=== PATIENT | female | born 1950 | race Caucasian/White ===

== ENCOUNTER 2022-01-14 13:14 | Outpatient (CLI) | payer MEDICARE, SELFPAY ==
[2022-01-14 16:52] LABS: TSH With Reflex to FT4* 0.312 uIU/mL (0.270-4.200)
--- NOTE | 2022-01-15 09:42 | ONC.NURNOTE ---
Patient referred by Dr. Laguerre for oncology follow up. Patient last seen in 05/[address] Magdaleno - per referral patient would like to see an alternative provider. LMOM for patient to call and schedule.
== END 2022-01-14 13:15 | disposition home or self-care (01) ==
LOC: NFLDREF 13:14
PROVIDERS: PCP Internal Medicine; Visit Provider Internal Medicine
DX: E03.9 Hypothyroidism, unspecified (principal)
CPT/HCPCS: 84443

== ENCOUNTER 2022-04-15 13:43 | Outpatient (CLI) | payer MEDICARE, SELFPAY ==
--- NOTE | 2022-04-15 14:00 | CRLHL7_ITS ---
For Patients: As a result of the Century Cures Act, medical imaging exams and procedure reports are released immediately into your electronic medical record. You may view this report before your referring provider. If you have questions, please contact your health care provider. BILATERAL SCREENING MAMMOGRAM WITH COMPUTER-AIDED DETECTION AND TOMOSYNTHESIS TECHNIQUE: CC and MLO views were obtained. These mammographic images have been obtained using full-field digital technique. These mammographic images were interpreted with the benefit of computer-aided detection. Breast Tomosynthesis was used in this interpretation. COMPARISON FILM: 11/15/20; 05/15/10. FINDINGS: The breasts are heterogeneously dense, which may obscure small masses IMPRESSION: There is no radiographic evidence for malignancy. ASSESSMENT: BI-RADS Category 2: Benign RECOMMENDATION: Routine screening mammogram in 1 year. A lay language report of this examination will be provided to the patient. Oscar Navarrete M.D. Diagnostic/Nuclear Medicine Radiologist [email or web address] Transcribed: 2:15 pm DW/Dictated by: Oscar Navarrete MD @ 04/16/2022 8:31:00 AM (Electronically Signed)
== END 2022-04-15 13:44 | disposition home or self-care (01) ==
LOC: MAMMO 13:44
PROVIDERS: PCP Internal Medicine; Visit Provider Internal Medicine
DX: Z12.31 Encounter for screening mammogram for malignant neoplasm of breast (principal); R92.2 Inconclusive mammogram
CPT/HCPCS: 77063; 77067

== ENCOUNTER 2022-04-21 09:44 | Outpatient (RCR) | payer MEDICARE, SELFPAY ==
--- NOTE | 2022-04-29 11:06 | ONC.NURNOTE ---
Follow up call to patient to see if she had made a decision re: endocrine therapy. Patient states I keep getting in my own way in regards to making a decision. Patient shares that she deals with a lot of chronic pain and she is so concerned that the endocrine therapy will interfere or worsen her existing problems. We again reviewed the side effects of endocrine therapy and I reiterated that she may have none, all or some of these side effects. The only way we will know is by trying. Patient appreciates the call and the information. She requests more time to make this decision. She will call us with her decision or with any questions or concerns.
== END 2022-10-18 23:59 | disposition home or self-care (01) ==
LOC: CCIC 09:44
PROVIDERS: PCP Internal Medicine; Visit Provider Nurse Practitioner Family
DX: C50.911 Malignant neoplasm of unspecified site of right female breast (principal); Z17.0 Estrogen receptor positive status [ER+]; Z85.3 Personal history of malignant neoplasm of breast; M85.80 Other specified disorders of bone density and structure, unspecified site
CPT/HCPCS: 99212; 99214

== ENCOUNTER 2023-02-05 13:23 | Outpatient (CLI) | payer MEDICARE, SELFPAY | END 2023-02-05 13:24 | disposition home or self-care (01) | PROVIDERS: PCP Internal Medicine; Visit Provider Internal Medicine | DX: Z00.00 Encounter for general adult medical examination without abnormal findings (principal); E03.9 Hypothyroidism, unspecified; Z13.6 Encounter for screening for cardiovascular disorders; Z13.1 Encounter for screening for diabetes mellitus | CPT/HCPCS: 80061; 82306; 82947; 84443 ==

== ENCOUNTER 2024-02-22 11:10 | Outpatient (CLI) | payer MEDICARE, SELFPAY | END 2024-02-22 11:11 | disposition home or self-care (01) | PROVIDERS: PCP Internal Medicine; Visit Provider Internal Medicine | DX: E03.9 Hypothyroidism, unspecified (principal); M85.80 Other specified disorders of bone density and structure, unspecified site | CPT/HCPCS: 82306; 84443 ==

== ENCOUNTER 2024-05-12 15:24 | Outpatient (CLI) | payer MEDICARE, SELFPAY | END 2024-05-12 15:25 | disposition home or self-care (01) | LOC: KYNREF 15:25 | PROVIDERS: PCP Internal Medicine; Visit Provider Nurse Practitioner Family | DX: R05.8 Other specified cough (principal) | CPT/HCPCS: 85025 ==

== ENCOUNTER 2024-06-03 13:09 | Outpatient (CLI) | payer MEDICARE, SELFPAY | END 2024-06-03 13:10 | disposition home or self-care (01) | LOC: KYNREF 13:10 | PROVIDERS: PCP Internal Medicine; Visit Provider Nurse Practitioner Family | DX: R53.83 Other fatigue (principal) | CPT/HCPCS: 85025 ==

== ENCOUNTER 2024-06-06 14:45 | Outpatient (CLI) | payer MEDICARE, SELFPAY | END 2024-06-06 14:46 | disposition home or self-care (01) | LOC: NFLDREF 06-08 01:29 | PROVIDERS: PCP Internal Medicine; Referring Provider Internal Medicine | DX: M54.9 Dorsalgia, unspecified (principal) | CPT/HCPCS: 87086 ==

== ENCOUNTER 2024-06-24 12:39 | Outpatient (CLI) | payer MEDICARE, SELFPAY ==
--- NOTE | 2024-06-24 13:00 | CRLHL7_ITS ---
For Patients: As a result of the Century Cures Act, medical imaging exams and procedure reports are released immediately into your electronic medical record. You may view this report before your referring provider. If you have questions, please contact your health care provider. INDICATION: Left-sided rib pain. History of breast cancer. COMPARISON: Radiograph 06/06/2024. TECHNIQUE: Sagittal T1, T2, and STIR sequences. Axial T2/gradient sequences. Post gadolinium to weighted sequences. Dotarem 20 cc IV. FINDINGS: Mild kyphosis of the midthoracic spine. Normal facet alignment. Widespread osseous metastases throughout the thoracic and visualized upper lumbar spine. Additional metastatic lesions also noted within the cervical spine on the [employer] films. Metastatic involvement of the posterior elements. Pathologic fracture of the T10 vertebral body with anterior wedging approximately 50 60 percent loss of height. Bulging of the posterior margin of the vertebral body measures approximate 4 mm in AP dimension. Post gadolinium imaging demonstrates abnormal enhancement within the dorsal epidural space at the level of T9 and T10 which may represent tumor extension into the epidural space. Normal cord signal. No intradural mass or lesion. Mild thoracic spondylosis. T9-10: Disk degeneration. Bulging of the posterior margin of the T10 vertebral body. Mild narrowing of spinal canal. Abnormal enhancement in the bilateral neural foramina likely represents extension of tumor. T10-11: Disc degeneration. Mild narrowing of spinal canal. Enhancing tumor extends into the bilateral neural foramina and likely encases the exiting T10 nerve roots. No spinal canal neural foraminal narrowing at remaining levels. IMPRESSION: 1. Widespread osseous metastases throughout the thoracic and visualized upper lumbar spine. 2. Pathologic fracture of T10. Anterior wedging and 50-60 percent loss of height. Bulging of the posterior margin of vertebral body results in moderate to severe narrowing of spinal canal 3. Post gadolinium imaging demonstrates no abnormal enhancement within the dorsal epidural space at T9 and T10 which may represent tumor extension. 4. Normal cord signal 5. At T9-10 and T10-11, mild narrowing of spinal canal. Enhancing tissue within the bilateral neural foramina likely represents tumor extension 6. No spinal canal or neural foraminal narrowing at the remaining levels Dictated by Martin Minor MD @ 06/27/2024 9:11:34 AM (Electronically Signed)
--- NOTE | 2024-06-24 13:45 | CRLHL7_ITS ---
For Patients: As a result of the Century Cures Act, medical imaging exams and procedure reports are released immediately into your electronic medical record. You may view this report before your referring provider. If you have questions, please contact your health care provider. INDICATION: Low back pain. History of breast cancer. COMPARISON: 06/06/2024. TECHNIQUE: Sagittal T1, T2, and STIR sequences. Axial T1 and T2 weighted sequences. FINDINGS: Normal vertebral body alignment. Widespread osseous metastases throughout the lumbar spine, sacrum, and visualized iliac bones. There is mild, approximately 20 percent loss of height of the L1 vertebral body which may be secondary to pathologic fracture. No retropulsion of fracture fragments. Abnormal osseous expansion of the left transverse process of L5 and the visualized left sacral ala secondary to tumor. There is tumor extension into the left ventral and dorsal neural foramina of the sacrum and into the left dorsal lateral epidural space at the level L5 through the sacrum. Abnormal enhancement within the ventral epidural space to the level of L5 and sacrum also consistent with tumor extension. Normal conus terminates at L1. T12-L1 L1-2 L2-3: No spinal canal or neural foraminal narrowing. L3-4: No narrowing of the spinal canal. No neural foraminal narrowing. L4-5: Disc degeneration posterior disc bulge. Mild narrowing of spinal canal. No neural foraminal narrowing. Mild facet arthropathy. L5-S1: Disc degeneration loss disc height. Diffuse disc bulge eccentric to the left. No narrowing of spinal canal. Tumor extending into the epidural space on the left as described above. Mild narrowing of bilateral foramina. There is enhancing tissue extending into the bilateral foramina, left greater right, consistent with tumor extension. Degenerative changes of the SI joints. Mildly prominent retroperitoneal lymph nodes. IMPRESSION: 1. Widespread osseous metastases. 2. Mild approximately 20 percent loss of height of L1 which may be secondary to pathologic fracture. 3. Abnormal osseous expansion of the left transverse process of L5 and the visualized left sacral ala secondary to tumor. Tumor extension into the epidural space from the level of L5 through the sacrum. 4. At L4-5, mild narrowing of the spinal canal 5. At L5-S1, mild narrowing of the bilateral neural foramina. Tumor extends into the bilateral neural foramina, left greater than right. Dictated by Martin Minor MD @ 06/27/2024 9:20:03 AM (Electronically Signed)
== END 2024-06-24 12:40 | disposition home or self-care (01) ==
LOC: MRI 12:39
PROVIDERS: PCP Internal Medicine; Visit Provider Family Medicine
DX: M54.50 Low back pain, unspecified (principal); C79.51 Secondary malignant neoplasm of bone; M51.26 Other intervertebral disc displacement, lumbar region; M51.27 Other intervertebral disc displacement, lumbosacral region; R07.81 Pleurodynia; M48.54XA Collapsed vertebra, not elsewhere classified, thoracic region, initial encounter for fracture; M51.24 Other intervertebral disc displacement, thoracic region; Z85.3 Personal history of malignant neoplasm of breast
CPT/HCPCS: 72157; 72158; A9575

== ENCOUNTER 2024-07-04 11:43 | Inpatient (IN) | payer MEDICARE, SELFPAY ==
[2024-07-04] VITALS (9 sets, daily range): BP systolic 114–160; BP diastolic 70–82; PULSE 95–107; RESP 12–18; TEMP 36.7–37.1; O2SAT 89–100; BMI 18.3; BMI 19.2
--- NOTE | 2024-07-04 13:38 | ED_ITS ---
HPI - General Adult General Date Seen: 07/04/24 Chief complaint: Back Injury/Pain Stated complaint: general check- sent by PCP Time Seen by Provider: 07/04/24 13:13 History of Present Illness HPI narrative: History is limited by patient's altered mental status. She is confused and a little bit anxious and tangential. 74-year-old female is sent to the ER today by her primary care provider. She presents to ER today accompanied by her . She has been previously very active up until March when she started having back pain. She has had workup in the clinic and apparently has ?spots? in her spine that her probably metastatic cancer. Her primary care provider, Dr. Matthews in has ordered further workup of brain MRI and PET scan which are scheduled to be done later this week. However her pain has been getting so severe that beginning 3 days ago on Thursday her primary put her on oxycodone. The oxycodone is helping somewhat with her pain but is causing vomiting. She saw Dr. Laguerre in the primary care clinic on 06/28/2024. According to those records she has a history of recurrent breast cancer, most recent recurred in 2020 but did not follow-up with Oncology. It sounds like Dr. Laguerre in prescribed her some opiate pain killers (possibly oxycodone) last week. Patient notes that she had at been having headaches lately. She has been having a lot of brain fog and trouble thinking. In addition to that she is having bifrontal headaches and right parietal headaches. Along with that she had had poor appetite for several weeks. She has had gone at least a week or so since she has last had a bowel movement. She is not really having abdominal pain or bloating. She was started on her pain killer because of her spine fractures and spine Mets and since then has had worsening confusion, nausea, poor oral intake. She does not think she is running a fever. Urination has been normal. She called her primary care office and was told to come here to the ER today. She is apparently scheduled to have an MRI of her brain and a PET scan over the next couple of days. The patient also says that she is not sure if she wants to go through any treatment if she does have recurrent or metastatic cancer. She has a little bit confused just does not know what to do. Per medical record: She saw Dr. Richter in the spine clinic in the end of May, 06/16/2024 for left- sided thoracic discomfort. She had already had x-rays that showed a T10 compression fracture with 40% loss of height. She ultimately had follow-up imaging of MRI of her T-spine and L-spine. 06/24/24 MRI T-spine IMPRESSION: 1. Widespread osseous metastases throughout the thoracic and visualized upper lumbar spine. 2. Pathologic fracture of T10. Anterior wedging and 50-60 percent loss of height. Bulging of the posterior margin of vertebral body results in moderate to severe narrowing of spinal canal 3. Post gadolinium imaging demonstrates no abnormal enhancement within the dorsal epidural space at T9 and T10 which may represent tumor extension. 4. Normal cord signal 5. At T9-10 and T10-11, mild narrowing of spinal canal. Enhancing tissue within the bilateral neural foramina likely represents tumor extension 6. No spinal canal or neural foraminal narrowing at the remaining levels MRI L-spine IMPRESSION: 1. Widespread osseous metastases. 2. Mild approximately 20 percent loss of height of L1 which may be secondary to pathologic fracture. 3. Abnormal osseous expansion of the left transverse process of L5 and the visualized left sacral ala secondary to tumor. Tumor extension into the epidural space from the level of L5 through the sacrum. 4. At L4-5, mild narrowing of the spinal canal 5. At L5-S1, mild narrowing of the bilateral neural foramina. Tumor extends into the bilateral neural foramina, left greater than right. Related Data Home Medications ?Medication ?Instructions ?Recorded ?Confirmed Lots of melaluca vitamins 1 tab PO 04/21/22 06/28/24 ibuprofen 200 mg tablet 200 mg PO Q6H PRN 04/21/22 07/04/24 omega 3-fyg-mri-fish oil 60 mg-90 1 cap PO QDAY 12/01/23 07/04/24 mg-500 mg capsule (Fish Oil) thiamine HCl (vitamin B1) 50 mg 50 mg PO QDAY 02/25/24 07/04/24 tablet mecobalamin (vitamin B12) 1 tab PO DAILY 06/28/24 07/04/24 Previous Rx's ?Medication ?Instructions ?Recorded levothyroxine 75 mcg tablet 75 mcg PO .COMPLEX #45 tabs 02/25/24 (Synthroid) levothyroxine 88 mcg tablet 88 mcg PO .COMPLEX #45 tabs 02/25/24 (Synthroid) oxycodone 5 mg tablet 5 - 10 mg (1 - 2 x 5 mg) PO Q4-8H 06/28/24 PRN pain #60 tabs Allergies Allergy/AdvReac Type Severity Reaction Status Date / Time No Known Drug Allergies Allergy Verified 07/04/24 15:22 [facility] Surgical History History of tonsillectomy ?Z90.89 - Acquired absence of other organs (ICD-10) History of partial thyroidectomy ?E89.0 - Postprocedural hypothyroidism (ICD-10) Social History Smoking Status: Former smoker What tobacco products do you use: cigarettes Smoking quit date/years: >15 years ago Do you use any of these nicotine containing products: None Second hand tobacco smoke exposure: No How often do you have a drink containing alcohol: never AUDIT-C Alcohol total score: 0 Non-prescribed substance use: denies use service: No Exam Narrative: Exam Narrative: Constitutional: Appears well-developed but very slender, almost cachectic. Awake. Wearing sunglasses because of photophobia when I enter into the room. I turned the lights on she is able to take her sunglasses off. She is anxious and jumps rapidly from concerned concern. Her is very attentive and supportive at her bedside. HENT: Head: Atraumatic. Nose: Nose normal. Mouth/Throat: Oral mucosa is clear but dry. Mucous membranes are not desiccated or cracked.. no trismus. Pharynx normal. Eyes: Conjunctivae normal. EOM normal. Pupils equal, round, and reactive to light. No scleral icterus. Neck: Normal range of motion. Neck supple. No tracheal deviation present. Cardiovascular: Normal rate, regular rhythm. No gallop. No friction rub. No murmur heard. Symmetric radial artery pulses Pulmonary/Chest: Effort normal. No stridor. No respiratory distress. No wheezes. No rales. No rhonchi . No tenderness. Abdominal: Soft. Bowel sounds normal. No distension. No mass. No tenderness. No rebound. No guarding. No CVA tenderness. Musculoskeletal: RUE: Normal range of motion. No tenderness. No deformity LUE: Normal range of motion. No tenderness. No deformity RLE: Normal range of motion. No edema. No tenderness. No deformity LLE: Normal range of motion. No edema. No tenderness. No deformity Neurological: Alert and oriented to person, place, and time, but overall is not a good historian. She is not able to really give good cogent history about when her about the constipation started, when her headache started. She talks a lot about a history of migraines which sometimes comes with aura and some with times without.. Normal strength. CN II-VII intact. No sensory deficit. GCS eye subscore is 4. GCS verbal subscore is 5. GCS motor subscore is 6. Normal [facility] . No definite focal deficits in her arms or legs. Skin: Skin is warm and dry. No rash noted. No pallor. Normal capillary refill. Psychiatric: Confused. Somewhat limited. Const: Vital Signs, click to edit/add: Vital Signs - 24 hr 07/04/24 12:15 07/04/24 15:30 07/04/24 15:30 Temperature 98.8 F Pulse Rate [Pulse Oximeter] 101 H Respiratory Rate 16 12 12 Blood Pressure [Ri t Upper Arm] 114/78 Pulse Oximetry 95 89 89 Oxygen Delivery Me thod Room Air Room Air Room Air Oxygen Flow Rate 07/04/24 15:40 07/04/24 16:00 07/04/24 17:00 Temperature Pulse Rate [Pulse Oximeter] 107 H 100 95 Respiratory Rate 18 16 16 Blood Pressure [Ri ght Upper Arm] 130/76 139/72 141/79 H Pulse Oximetry 100 100 100 Oxygen Delivery Me thod Nasal Cannula Room Air Room Air Oxygen Flow Rate 2 Course Vital Signs Vital signs: Initial Vital Signs Temperature 98.8 F 07/04/24 12:15 Temperature Source Temporal Artery Scan 07/04/24 12:15 Pulse Rate 101 H 07/04/24 12:15 Pulse Rhythm Regular 07/04/24 12:15 Pulse Strength 3+ Normal 07/04/24 12:15 Respiratory Rate 16 07/04/24 12:15 Blood Pressure 114/78 07/04/24 12:15 Blood Pressure Mean 90 07/04/24 12:15 Blood Pressure Position Sitting 07/04/24 12:15 Pulse Oximetry 95 07/04/24 12:15 Oxygen Delivery Method Room Air 07/04/24 12:15 Vital Signs Temperature 98.8 F 07/04/24 12:15 Pulse Rate 101 H 07/04/24 12:15 Respiratory Rate 16 07/04/24 12:15 Blood Pressure 114/78 07/04/24 12:15 Pulse Oximetry 95 07/04/24 12:15 Oxygen Delivery Method Room Air 07/04/24 12:15 Temperature 98.8 F 07/04/24 12:15 Pulse Rate 95 07/04/24 17:00 Respiratory Rate 16 07/04/24 17:00 Blood Pressure 141/79 H 07/04/24 17:00 Pulse Oximetry 100 07/04/24 17:00 Oxygen Delivery Method Room Air 07/04/24 17:00 Oxygen Flow Rate 2 07/04/24 15:40 Medications Administered Medications: Generic Name Dose Route Start Last Admin Trade Name Freq PRN Reason Stop Dose Admin Hydromorphone HCl 0.5 mg 07/04/24 14:20 07/04/24 15:07 Hydromorphone 0.5 Mg/0.5 Ml Inj IVP 0.5 mg Q1H PRN Administration Pain Sodium Chloride 1,000 mls @ 1,000 mls/hr 07/04/24 16:30 07/04/24 16:56 0.9 % Sodium Chloride 1000 Ml IV 07/04/24 17:29 Infused .Q1H MARIVEL Infusion Discontinued Medications Generic Name Dose Route Start Last Admin Trade Name Freq PRN Reason Stop Dose Admin Sodium Chloride 1,000 mls @ 1,000 mls/hr 07/04/24 14:30 07/04/24 15:09 0.9 % Sodium Chloride 1000 Ml IV 07/04/24 15:29 1,000 mls/hr .Q1H MARIVEL Administration Ondansetron HCl 4 mg 07/04/24 14:20 07/04/24 15:08 Ondansetron 2 Mg/Ml Inj IVP 07/04/24 14:21 4 mg ONCE ONE Administration Medical Decision Making MDM Narrative Medical decision making narrative: Very pleasant 74-year-old female accompanied to the ER today by her . They were sent in by their primary care provider today it sounds like because she is just having uncontrolled back pain with a known recent diagnosis of multiple spinal metastatic lesions and pathologic fractures. She also has generalized weakness, nausea, and is generally rapidly declining at home. 1. Back pain. She had MRI of her thoracic and lumbar spine a couple weeks ago which confirmed a multiple-level metastatic disease and pathologic fractures. She has no new focal neurologic deficits to suggest spinal cord injury or lumbar radiculopathy so I do not think she needs repeat MR imaging of her spine today. She was endorsing a lot of back pain at home, uncontrolled by prescribed opiate from her PCP. We administered IV Dilaudid here in the ER and she became much more comfortable. She now says that she is mostly just feeling drowsy, not having pain. She did develop hypoxia after Dilaudid, so now is on nasal cannula. At this point she is able to rest comfortably in bed. 2. Neuro. She does have some nonfocal confusion. Unclear if this is anxiety and stress due to her recent discovery of metastatic cancer. She does tell me that she is not sure if she really wants to treat this time or not. She also does not know the true primary. She has no knowledge about prognosis. She was scheduled to have outpatient brain MRI and PET scan in a couple of days, but was too miserable at home and too weak to wait for outpatient workup. She is also a little bit confused, jumping rapidly from thought to thought. Brain CT today is negative for any obvious metastatic disease, but I do think she needs MRI. There is no focal deficits suggest stroke or obvious tumor. No seizure activity. She also has mild hyponatremia which could be contributing to confusion as well as marked hypercalcemia which can also cause altered mental status. At this point I do not think she needs lumbar puncture or other workup to look for encephalitis. In fact I think LP would be relatively contraindicated until MRI is obtained to definitively rule out mass lesions in the brain. 3. Electrolytes. She does have marked hypercalcemia. Ionized calcium is not available immediately, but is pending at the time this dictation. Started on IV hydration to help diurese her hypercalcemia. She will be admitted to the hospitalist service for ongoing calcium management. EKG shows nonspecific T- wave changes but no obvious QRS or dangerous QT changes. She also has mild hyponatremia which could is likely also contributing to weakness and confusion. BUN slightly elevated at 33 which would suggest some poor oral intake at home. IV fluids administered. Blood pressure and lactic acid are stable. No evidence for shock. 4. Id. She is mildly confused but not febrile, white count is normal. No clear evidence for infection. 5. Oncology. CT scan of her chest/abdomen/pelvis does show widely metastatic cancer with an apparent primary in her right upper breast. There are noted lung Mets, liver Mets, and also redemonstration of her previous spine metastases. W ould benefit from oncology consultation while in hospital, if possible. Patient unclear about what her goals of care are. Discussed with our hospitalist, Dr. Cagle who graciously accepts for admission. Please see hospitalist notes for further details about admission status and further workup. Lab Data Labs: Lab Results 07/04/24 Range/Units 15:10 WBC 5.32 (4.50-11.00) K/uL RBC 4.21 (4.00-5.20) m/uL Hgb 12.3 (12.0-16.0) gm/dL Hct 36.1 (33.0-51.0) % MCV 86 (80-100) fL MCH 29 (26-34) pg MCHC 34 (32-36) gm/dL RDW Coeff of Michelle 12.5 (11.5-15.5) % Plt Count 237 (140-440) K/uL Neut % (Auto) 80.4 H (42.0-72.0) % Lymph % (Auto) 11.7 L (20-44) % Noble % (Auto) 5.8 (0.0-11.0) % Eos % (Auto) 0.0 (0.0-7.0) % Baso % (Auto) 0.4 (0.0-3.0) % Neut # (Auto) 4.30 (1.7-7.0) K/uL Lymph # (Auto) 0.60 L (0.90-2.90) K/uL Noble # (Auto) 0.30 (0.00-0.90) K/UL Eos # (Auto) 0.00 (0.00-0.50) K/uL Baso # (Auto) 0.02 (0.00-0.30) K/uL Abs Immat Gran (auto) 0.09 (0.00-0.30) K/uL Imm/Tot Granulo (auto) 1.7 % Sodium 126 L (135-149) mmol/L Potassium 4.4 (3.6-5.1) mmol/L Chloride 83 L (96-114) mmol/L Carbon Dioxide 33 H (20-32) mmol/L Anion Gap 10 (7-15) mEq/L BUN 32 H (7-30) mg/dL Creatinine 1.2 (0.5-1.5) mg/dL Estimated Creat Clear 32.89 Estimated GFR 48 ml/min Glucose 104 (60-115) mg/dL Lactate 1.5 (0.5-1.9) mmol/L Calcium 14.5 H* (8.4-10.6) mg/dL Total Bilirubin 0.9 (0.1-1.5) mg/dL AST 100 H (12-35) U/L ALT 31 (4-35) U/L Alkaline Phosphatase 157 H (40-150) U/L Troponin I 0.03 (0.01-0.04) ng/mL Total Protein 8.3 (6.0-8.3) g/dL Albumin 4.7 (3.3-5.0) g/dL Imaging Data CT scan - head: Attestation: I have reviewed the pertinent imaging results. Radiologist's impression: IMPRESSION: No intracranial abnormality. Fluid in the right sphenoid sinus suggesting sinusitis. No other finding to explain headache. CT Chest/Ab/Pelvis: Attestation: I have reviewed the pertinent imaging results. Radiologist's impression: Impression: 1. 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 2. Small left basilar effusion with demonstration of spiculated pulmonary mass lesions within the lower lobes and anterior left upper lobe commensurate with likely metastatic disease. 3. Primary mass in the upper-outer right breast is appreciated with pathologic right axillary lymph node. 4. Demonstration of a hypodensity within the posterior right liver which may represent a large metastatic focus; however, there is minimal peripheral nodular enhancement. A large hemangioma is not excluded. 5. Otherwise, no acute intra-abdominal abnormalities or evidence of additional metastasis. ECG Data Attestation: I personally reviewed and interpreted this ECG as follows: Interpretation: Or sinus tachycardia Rate: 112 AK: 116 QRS axis: normal axis ST segment/T wave: Nonspecific T-wave flattening. No ST segment elevation or depression. QTc: 406 Discharge Plan Discharge Clinical Impression: Hypercalcemia, Metastatic cancer, Back pain Patient Disposition: Admitted As Observation
--- NOTE | 2024-07-04 14:20 | CRLHL7_ITS ---
For Patients: As a result of the Century Cures Act, medical imaging exams and procedure reports are released immediately into your electronic medical record. You may view this report before your referring provider. If you have questions, please contact your health care provider. Indication: Headache, nausea and vomiting Technique: Volumetric multidetector CT images of the chest, abdomen, and pelvis were obtained after the administration of intravenous contrast. 54 cc Isovue 370 low osmolar intravenous contrast Comparison: MRI thoracic and lumbar spine June 24, 2024 FINDINGS: CHEST The thoracic inlet is unremarkable. The thyroid gland is within normal limits. The thoracic aorta is nonaneurysmal. There is no filling defect to suggest pulmonary embolus. There are enlarged mediastinal, hilar and subcarinal lymph nodes appreciated. Demonstration of likely prior left axillary lymph node dissection as well as a 2.7 x 1.9 centimeter mass in the upper-outer quadrant of the right breast abutting the adjacent pectoral muscle. Additional pathologic lymph nodes within the right axilla appreciated with likely biopsy marker clip. Marked central bronchial thickening. Demonstration of anye-zmbzjsq-wmtd-right basilar trace effusions with adjacent compressive atelectasis. There is mild interlobular septal thickening which may represent a component of pulmonary vascular congestion. Minimal questionable airspace opacity in the anterior right lower lobe is appreciated. There are somewhat spiculated nodules of soft tissue in the left lower lobe measuring 2.0 x 1.8 centimeters along the cardiopericardial surface. Additional spiculated pulmonary mass in the left lung base measuring 1.2 centimeters is appreciated. Heterogeneous marrow changes of the visualized thoracic osseous structures commensurate with likely underlying metastasis are appreciated. Again seen are metastatic changes of the thoracic spine with compression deformity of the T10 level as well as Schmorl`s defect of the superior T12 endplate and evolving likely pathologic fracture of the superior L1 endplate. No significant change from comparison exam. Underlying metastatic changes are better appreciated on comparison MRI. ABDOMEN AND PELVIS The liver demonstrates a large hypodense mass lesion within the posterior right liver with somewhat irregular margins measuring 3.9 x 3.4 centimeters which may represent metastatic change. There is suggestion of minimal peripheral nodular enhancement. An underlying hemangioma is not excluded. The spleen is normal in attenuation and size. The gallbladder is unremarkable without radiopaque calculus. There is no intrahepatic or common ductal dilatation. The stomach and duodenum are grossly unremarkable. The pancreas is normal in enhancement without significant atrophy. The adrenal glands are unremarkable without evidence of adenoma. There is prominence of the bilateral collecting systems without evidence obstructive calculus. There is somewhat abrupt caliber change at the right ureteropelvic junction. The colon demonstrates mild stool with minimal distal colonic diverticulosis. The appendix is unremarkable without significant inflammatory change. The abdominal aorta is nonaneurysmal without significant atherosclerotic disease. The solid pelvic viscera are grossly unremarkable. There is no pathologically enlarged epigastric, mesenteric, retroperitoneal, or pelvic sidewall lymph node. The anterior abdominal wall is grossly intact without significant hernias. There is no free air or free fluid. There is extensive lytic change within the left sacral ala with likely minimal epidural encroachment and encompassing the sacral neural foramina. Extensive lytic and blastic changes of the bilateral iliac bones are appreciated. Redemonstration of metastatic changes of the lumbar spine better appreciated on comparison MRI. No significant change from previous. Impression: 1. 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 2. Small left basilar effusion with demonstration of spiculated pulmonary mass lesions within the lower lobes and anterior left upper lobe commensurate with likely metastatic disease. 3. Primary mass in the upper-outer right breast is appreciated with pathologic right axillary lymph node. 4. Demonstration of a hypodensity within the posterior right liver which may represent a large metastatic focus; however, there is minimal peripheral nodular enhancement. A large hemangioma is not excluded. 5. Otherwise, no acute intra-abdominal abnormalities or evidence of additional metastasis. Please note that all CT scans at this facility use dose modulation, iterative reconstruction, and/or weight-based dosing when appropriate to reduce radiation dose to as low as reasonably achievable. Dictated by Sorin Neely MD @ 07/04/2024 4:10:41 PM (Electronically Signed)
--- NOTE | 2024-07-04 14:20 | CRLHL7_ITS ---
For Patients: As a result of the Century Cures Act, medical imaging exams and procedure reports are released immediately into your electronic medical record. You may view this report before your referring provider. If you have questions, please contact your health care provider. INDICATION: Headache, nausea and vomiting. TECHNIQUE: CT head without contrast. COMPARISON: None. FINDINGS: CSF spaces: Within normal limits for age. Brain parenchyma and extra-axial spaces: The jennings-white differentiation is normal. No sign of mass, hemorrhage, or midline shift. No extra-axial fluid collection. Skull base and calvarium: Fluid level present in the right sphenoid sinus. Remainder of the paranasal sinuses and mastoid air cells are clear. The visualized orbits are grossly unremarkable. No skull fractures. IMPRESSION: No intracranial abnormality. Fluid in the right sphenoid sinus suggesting sinusitis. No other finding to explain headache. Please note that all CT scans at this facility use dose modulation, iterative reconstruction, and/or weight-based dosing when appropriate to reduce radiation dose to as low as reasonably achievable. Dictated by Jaziel Cortes MD @ 07/04/2024 3:53:33 PM (Electronically Signed)
[2024-07-04] MEDS: HYDROmorphone 0.5 mg/0.5 ml inj IVP ×2 (15:07→21:02)
[2024-07-04] MEDS: ONDANSETRON 2 MG/ML inj 4 MG IVP ×2 (15:08→22:35)
[2024-07-04] MEDS: 0.9 % SODIUM CHLORIDE 1000 ml 1,000 ML IV ×2 (15:09→16:50)
[2024-07-04 15:16] LABS: Lactate* 1.5 mmol/L (0.5-1.9)
[2024-07-04 15:24] LABS: Basophils Absolute Auto 0.02 K/uL (0.00-0.30); Basophils Percent Auto 0.4 % (0.0-3.0); Hematocrit 36.1 % (33.0-51.0); Hemoglobin* 12.3 gm/dL (12.0-16.0); Immature Granulocytes Abs Auto 0.09 K/uL (0.00-0.30); Immature Granulocytes Pct Auto 1.7 %; Lymphocytes Percent Auto 11.7 % (20-44); Mean Corpuscular HGB Conc 34 gm/dL (32-36); Mean Corpuscular Hemoglobin 29 pg (26-34); Mean Corpuscular Volume 86 fL (80-100); Monocytes Percent Auto 5.8 % (0.0-11.0); Neutrophils Percent Auto 80.4 % (42.0-72.0); Platelet Count* 237 K/uL (140-440); RDW Coefficient of Variation % 12.5 % (11.5-15.5); Red Blood Count 4.21 m/uL (4.00-5.20); White Blood Count* 5.32 K/uL (4.50-11.00)
[2024-07-04 15:28] LABS: Slide Review Reflex No
[2024-07-04 15:34] LABS: Albumin* 4.7 g/dL (3.3-5.0); Chloride* 83 mmol/L (96-114); Potassium* 4.4 mmol/L (3.6-5.1); Sodium* 126 mmol/L (135-149)
[2024-07-04 15:37] LABS: Alanine Aminotransferase* 31 U/L (4-35); Alkaline Phosphatase* 157 U/L (40-150); Anion Gap 10 mEq/L (7-15); Aspartate Amino Transferase* 100 U/L (12-35); Bilirubin Total* 0.9 mg/dL (0.1-1.5); Blood Urea Nitrogen* 32 mg/dL (7-30); Carbon Dioxide* 33 mmol/L (20-32); Creatinine* 1.2 mg/dL (0.5-1.5); Est. Creatinine Clearance* 32.89; Estimated Glomerular Filt Rate 48 ml/min; Glucose* 104 mg/dL (60-115); Total Protein* 8.3 g/dL (6.0-8.3)
[2024-07-04 15:49] LABS: Troponin I* 0.03 ng/mL (0.01-0.04)
[2024-07-04 15:50] LABS: Calcium* 14.5 mg/dL (8.4-10.6)
[2024-07-04 19:12] LABS: Appearance Urine Clear (Clear); Bilirubin Urine Negative (Negative); Blood Urine 1+ (Negative); Color Urine Yellow (Yellow); Glucose Urine Negative (Negative); Ketones Urine 1+ (Negative); Leukocyte Esterase Urine Negative (Negative); Nitrite Urine Negative (Negative); Protein Urine Negative (Negative); Urobilinogen Urine 0.2 (0.2-1.0); pH Urine 6.5 (5.0-8.5)
--- NOTE | 2024-07-04 19:28 | PC.NURSE ---
Pt admitted @ 1713, accompanied by . AxOx4, with forgetfulness. Pt reported that the picture frame across the room appeared sparkly and when Pt closed eyes, pictures kept popping up of Easter baskets. Pt and gave Pt history. Physical exam complete. Urine sample collected. Pt unable to recall last bm. Pt showed understanding of call light use. Awaiting orders. Report given to [facility] [place]. Pt appears resting in bed with call light in reach.
[2024-07-04 19:32] LABS: Bacteria Urine Few; Squamous Epithelial Cell Urine Few (None-Few); WBC Urine 0-2 (0-5)
--- NOTE | 2024-07-04 19:38 | PM.IMHP1 ---
Assessment and Plan Assessment and plan (1) Back pain: Problem comment: - widely metastatic cancer in the thoracic and lumbar spine along with several pathologic vertebral fractures - patient is agreeable to try higher doses of oxycodone and noted that the Dilaudid that she got in the emergency department seemed to help as well. I have ordered both of these for pain control, Dilaudid should be for breakthrough pain. I think her pain this week is likely exacerbated by hypercalcemia. Status: Acute (2) Hypercalcemia: Problem comment: - severe hypercalcemia of malignancy with a calcium of greater than 14 due to bony metastases. Confusion/AMS is likely secondary to hypercalcemia. I believe her pain is also exacerbated by severe hypercalcemia. - She has gotten 2 L of IV fluid in the emergency department and her calcium has already come down to 12.7. I then continued IVF at a rate of 200cc/hr. She has had 1600cc UO over the past 6 hours now, so I have decreased the rate to 100cc/hr. - I have ordered 1 dose of calcitonin, 4 units/kg. Will redraw calcium with the morning labs, which will be just over 6 hours from the time the calcitonin was given. If calcium is coming down further, calcitonin can be repeated at that dose every 6 hours. If it is not coming down further, the dose could be doubled. - I also gave zoledronic acid 4mg IV. I ordered it to be given over 60 minutes due to low GFR. It is unclear if she has acute or chronic renal failure as I have no previous lab for comparison. Recheck Cr in am. Status: Acute (3) Metastatic cancer to spine: Problem comment: metastatic cancer to spine, metastatic related compression fractures T10 and L1 by MRI 07/15 Status: Acute (4) Pathologic compression fracture of spine: Problem comment: metastatic related compression fractures T10 and L1 by MRI 07/15 Status: Acute (5) Hyponatremia: Problem comment: - mild, likely due to dehydration, may also be exacerbated by lung metastasis. Coming up with hydration, 126 -> 127. Recheck in am. Status: Acute (6) Hypothyroidism: Problem comment: s/p partial thyroidectomy for benign tumor, continue Synthroid Status: Chronic Plan For foot pain, I have ordered L foot films. Total Time Spent Total Time Spent: Time spent: Today I spent 75 minutes seeing the patient, discussing the patient with ER staff, reviewing Expanse and EPIC notes/diagnostics, discussing the care plan with our care team that includes social work, PT/OT, pharmacy, RT, jail and documenting my impressions and plan in the medical record. MEDICAL NECESSITY FOR HOSPITALIZATION Anticipated midnights in the hospital: 2 Admitting diagnosis: Hypercalcemia due to malignancy, uncontrolled back pain due to pathologic fractures and bony mets. Risk of morbidity and mortality: high Acuity is characterized as high and reflected in: The patient has recurrent metastatic breast cancer. This increases the risk during treatment and potentially prolong treatment length. This patient will require hospital services as outlined in the assessment and plan in order to stabilize and be safely discharged to a lower level of care. Because of the risk and acuity as described above, this patient cannot be managed at a lower level of care. LENGTH OF STAY: 2 IP ? Anticipated LOS>2 midnights due to acuity of clinical presentation requiring inpatient level of care Hospitalist- H&P: HPI History of Present Illness Time Seen by Provider: 17:30 Date Seen: 07/04/24 Chief complaint: general check- sent by PCP Narrative: Diana Gipson is a 74 year old female with a history of recurrent breast cancer, recent discovery of bone metastases, hypothyroidism, osteopenia, and chronic neck pain, presents to the emergency department for concerns of worsening back pain. She had breast cancer back in 2010 with a recurrence in 2020. She was seen by Dr. Magdaleno at that time. The patient tells me that she did not trust Dr. Magdaleno's recommendation to start tamoxifen, because Crissy thought that alternative medicine would be better and so she was lost to follow-up. In January she started having low back pain that has been getting worse and starting to spasm. She has tried going to 2 different chiropractors without improvement. It is starting to affect her sleep and activities of daily living. She went to urgent care in mid May and was found to have a compression fracture of the spine. She saw the back clinic and also had an MRI of her thoracic and lumbar spine and was found to widespread bone Mets likely from breast cancer. She met with her primary care provider again prescribed immediate release oxycodone. She is supposed to have a brain MRI and PET scan later this week and follow-up with Oncology. Pain was getting unbearable and she was starting to get confused at home as well. Her is with her today helps to give the history. She tried taking 2.5 mg of oxycodone, but was afraid to increase the dose to 5 or 10 mg time. She did not notice much effect of the medication for pain. Also in the last few months she has noticed left 4th and 5th toe numbness it is starting to become painful in that area as well. She just feels tender and achy all over. Review of Systems Status of ROS: Reports: 10 or more systems reviewed and unremarkable except as noted in History and below [facility] Medical History (Updated 07/04/24 @ 23:46 by Apurva Cagle MD) Tension headache ?G44.209 - Tension-type headache, unspecified, not intractable (ICD-10) Hypothyroidism ?E03.9 - Hypothyroidism, unspecified (ICD-10) Chronic neck pain ?M54.2 - Cervicalgia (ICD-10) ?G89.29 - Other chronic pain (ICD-10) History of breast cancer ?Z85.3 - Personal history of malignant neoplasm of breast (ICD-10) Osteopenia ?M85.80 - Other specified disorders of bone density and structure, unspecified site (ICD-10) Herpes zoster vaccination declined ?Z28.21 - Immunization not carried out because of patient refusal (ICD-10) COVID-19 vaccination declined ?Z28.21 - Immunization not carried out because of patient refusal (ICD-10) Influenza vaccination declined ?Z28.21 - Immunization not carried out because of patient refusal (ICD-10) Mammogram declined ?Z53.20 - Procedure and treatment not carried out because of patient's decision for unspecified reasons (ICD-10) Metastatic cancer to spine ?C79.51 - Secondary malignant neoplasm of bone (ICD-10) Pathologic compression fracture of spine ?M48.50XA - Collapsed vertebra, not elsewhere classified, site unspecified, initial encounter for fracture (ICD-10) Surgical History History of tonsillectomy ?Z90.89 - Acquired absence of other organs (ICD-10) History of partial thyroidectomy ?E89.0 - Postprocedural hypothyroidism (ICD-10) Social History (Updated 07/04/24 @ 19:46 by Apurva Cagle MD) Narrative: Retired from working at a [employer]. ; , Markel, is with her today. Denies alcohol use (lost the taste for it). Remote h/o smoking. DNR/DNI. What is your current living situation?: I presently have a place to live Problems where you live: no known problems Problems where you live details: NA In the past 12 months, utilities in danger of being shut off: no In past 12 months, lack of transportation kept you from medical appts, meetings, work, or getting things needed for daily living: no In the past 12 mos, have been you worried that your food would run out before you had money to buy more?: never true In the past 12 mos, the food you bought just didn't last and you didn't have money to buy more?: never true Highest level of school completed/degree received: high school graduate Smoking Status: Former smoker What tobacco products do you use: cigarettes Smoking quit date/years: >15 years ago Do you use any of these nicotine containing products: None Second hand tobacco smoke exposure: No How often do you have a drink containing alcohol: never AUDIT-C Alcohol total score: 0 Non-prescribed substance use: denies use How often does anyone, including family, friends and others, physically hurt you: never How often does anyone, including family, friends and others, insult or talk down to you: never How often does anyone, including family, friends and others, threaten you with harm: never How often does anyone, including family, friends and others, scream or curse at you: never service: No Meds Home Medications and Allergies Home Medications ?Medication ?Instructions ?Recorded ?Confirmed ?Type Lots of melaluca vitamins 1 tab PO 04/21/22 06/28/24 History ibuprofen 200 mg tablet 200 mg PO Q6H PRN 04/21/22 07/04/24 History omega 6-djm-xaf-fish oil 60 mg-90 1 cap PO QDAY 12/01/23 07/04/24 History mg-500 mg capsule (Fish Oil) mecobalamin (vitamin B12) 1 tab PO DAILY 06/28/24 07/04/24 History Allergies Allergy/AdvReac Type Severity Reaction Status Date / Time No Known Drug Allergies Allergy Verified 07/04/24 15:22 Exam Narrative: Exam Narrative: General: No acute distress. Awake alert oriented x3, but has disorganized thoughts with confusion times. She has difficulty staying focused on the topic and admits to feeling fuzzy and confused. HEENT: Normocephalic atraumatic, pupils equally round and reactive to light and accommodation. Oropharynx clear. Mucous membranes are moist. No cervical lymphadenopathy, thyromegaly or carotid bruits. No JVD. Cardiovascular: Regular rate and rhythm. No murmurs, gallops, or rubs. Chest: No increased work of breathing. Clear to auscultation bilaterally. No crackles or wheezes. Abdomen: Bowel sounds present. Soft, nondistended, nontender. No hepatosplenomegaly or masses. Extremities: No edema, no cyanosis or clubbing. Skin: No jaundice, no pallor, no rashes. Neuro: Sensorium as above. Cranial nerves 2-12 are intact. Extraocular movements are full. No nystagmus. No facial asymmetry. Tongue is midline. Vision is grossly intact. Strength is 5/5 in all 4 extremities. Decreased sensation of the 4th and 5th toes, otherwise light touch sensation is intact in face body and extremities. Const: Vital Signs, click to edit/add: Vital Signs - 24 hr 07/04/24 12:15 07/04/24 15:30 07/04/24 15:30 Temperature 98.8 F Pulse Rate [Pulse Oximeter] 101 H Respiratory Rate 16 12 12 Blood Pressure [Ri ght Arm] Blood Pressure [Ri ght Upper Arm] 114/78 Pulse Oximetry 95 89 89 Oxygen Delivery Me thod Room Air Room Air Room Air Oxygen Flow Rate 07/04/24 15:40 07/04/24 16:00 07/04/24 17:00 Temperature Pulse Rate [Pulse Oximeter] 107 H 100 95 Respiratory Rate 18 16 16 Blood Pressure [Ri ght Arm] Blood Pressure [Ri ght Upper Arm] 130/76 139/72 141/79 H Pulse Oximetry 100 100 100 Oxygen Delivery Me thod Nasal Cannula Room Air Room Air Oxygen Flow Rate 2 07/04/24 18:32 07/04/24 18:32 Temperature 98.5 F Pulse Rate [Pulse Oximeter] 101 H Respiratory Rate 16 Blood Pressure [Ri ght Arm] 160/81 H Blood Pressure [Ri ght Upper Arm] Pulse Oximetry 93 Oxygen Delivery Me thod Room Air Room Air Oxygen Flow Rate Hospitalist - H&P: Result Labs Labs: Short CBC 07/04/24 Range/Units 15:10 WBC 5.32 (4.50-11.00) K/uL Hgb 12.3 (12.0-16.0) gm/dL Hct 36.1 (33.0-51.0) % Plt Count 237 (140-440) K/uL BMP 07/04/24 15:10 Sodium 126 L Potassium 4.4 Chloride 83 L Carbon Dioxide 33 H BUN 32 H Creatinine 1.2 Glucose 104 Calcium 14.5 H* Cardiac Enzymes 07/04/24 Range/Units 15:10 Troponin I 0.03 (0.01-0.04) ng/mL Liver Function 07/04/24 Range/Units 15:10 Total Bilirubin 0.9 (0.1-1.5) mg/dL AST 100 H (12-35) U/L ALT 31 (4-35) U/L Alkaline Phosphatase 157 H (40-150) U/L Albumin 4.7 (3.3-5.0) g/dL Urine 07/04/24 Range/Units 14:22 Urine Color Yellow (Yellow) Urine Appearance Clear (Clear) Urine pH 6.5 (5.0-8.5) Ur Specific [place] 1.010 (1.000-1.030) Urine Protein Negative (Negative) Urine Glucose (UA) Negative (Negative) 07/04/2024 EKG: Sinus tachycardia, 112 beats per minute, marked ST abnormality, possible inferior subendocardial injury. Ordering Physician: Rohith Phelps M.D. Date of Service: 07/04/24 Procedure(s): CT chest abdomen pelv w con Accession Number(s): [id number] cc: Neda Laguerre M.D.; Rohith Phleps M.D.~ For Patients: As a result of the Century Cures Act, medical imaging exams and procedure reports are released immediately into your electronic medical record. You may view this report before your referring provider. If you have questions, please contact your health care provider. Indication: Headache, nausea and vomiting Technique: Volumetric multidetector CT images of the chest, abdomen, and pelvis were obtained after the administration of intravenous contrast. 54 cc Isovue 370 low osmolar intravenous contrast Comparison: MRI thoracic and lumbar spine June 24, 2024 FINDINGS: CHEST The thoracic inlet is unremarkable. The thyroid gland is within normal limits. The thoracic aorta is nonaneurysmal. There is no filling defect to suggest pulmonary embolus. There are enlarged mediastinal, hilar and subcarinal lymph nodes appreciated. Demonstration of likely prior left axillary lymph node dissection as well as a 2.7 x 1.9 centimeter mass in the upper-outer quadrant of the right breast abutting the adjacent pectoral muscle. Additional pathologic lymph nodes within the right axilla appreciated with likely biopsy marker clip. Marked central bronchial thickening. Demonstration of xebx-twnklre-mpcj-right basilar trace effusions with adjacent compressive atelectasis. There is mild interlobular septal thickening which may represent a component of pulmonary vascular congestion. Minimal questionable airspace opacity in the anterior right lower lobe is appreciated. There are somewhat spiculated nodules of soft tissue in the left lower lobe measuring 2.0 x 1.8 centimeters along the cardiopericardial surface. Additional spiculated pulmonary mass in the left lung base measuring 1.2 centimeters is appreciated. Heterogeneous marrow changes of the visualized thoracic osseous structures commensurate with likely underlying metastasis are appreciated. Again seen are metastatic changes of the thoracic spine with compression deformity of the T10 level as well as Schmorl`s defect of the superior T12 endplate and evolving likely pathologic fracture of the superior L1 endplate. No significant change from comparison exam. Underlying metastatic changes are better appreciated on comparison MRI. ABDOMEN AND PELVIS The liver demonstrates a large hypodense mass lesion within the posterior right liver with somewhat irregular margins measuring 3.9 x 3.4 centimeters which may represent metastatic change. There is suggestion of minimal peripheral nodular enhancement. An underlying hemangioma is not excluded. The spleen is normal in attenuation and size. The gallbladder is unremarkable without radiopaque calculus. There is no intrahepatic or common ductal dilatation. The stomach and duodenum are grossly unremarkable. The pancreas is normal in enhancement without significant atrophy. The adrenal glands are unremarkable without evidence of adenoma. There is prominence of the bilateral collecting systems without evidence obstructive calculus. There is somewhat abrupt caliber change at the right ureteropelvic junction. The colon demonstrates mild stool with minimal distal colonic diverticulosis. The appendix is unremarkable without significant inflammatory change. The abdominal aorta is nonaneurysmal without significant atherosclerotic disease. The solid pelvic viscera are grossly unremarkable. There is no pathologically enlarged epigastric, mesenteric, retroperitoneal, or pelvic sidewall lymph node. The anterior abdominal wall is grossly intact without significant hernias. There is no free air or free fluid. There is extensive lytic change within the left sacral ala with likely minimal epidural encroachment and encompassing the sacral neural foramina. Extensive lytic and blastic changes of the bilateral iliac bones are appreciated. Redemonstration of metastatic changes of the lumbar spine better appreciated on comparison MRI. No significant change from previous. Impression: 1. 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 2. Small left basilar effusion with demonstration of spiculated pulmonary mass lesions within the lower lobes and anterior left upper lobe commensurate with likely metastatic disease. 3. Primary mass in the upper-outer right breast is appreciated with pathologic right axillary lymph node. 4. Demonstration of a hypodensity within the posterior right liver which may represent a large metastatic focus; however, there is minimal peripheral nodular enhancement. A large hemangioma is not excluded. 5. Otherwise, no acute intra-abdominal abnormalities or evidence of additional metastasis. Please note that all CT scans at this facility use dose modulation, iterative reconstruction, and/or weight-based dosing when appropriate to reduce radiation dose to as low as reasonably achievable. Dictated by Sorin Neely MD @ 07/04/2024 4:10:41 PM (Electronically Signed) Ordering Physician: Rohith Phelps M.D. Date of Service: 07/04/24 Procedure(s): CT head/brain wo con Accession Number(s): [id number] cc: Neda Laguerre M.D.; Rohith Phelps M.D.~ For Patients: As a result of the Century Cures Act, medical imaging exams and procedure reports are released immediately into your electronic medical record. You may view this report before your referring provider. If you have questions, please contact your health care provider. INDICATION: Headache, nausea and vomiting. TECHNIQUE: CT head without contrast. COMPARISON: None. FINDINGS: CSF spaces: Within normal limits for age. Brain parenchyma and extra-axial spaces: The jennings-white differentiation is normal. No sign of mass, hemorrhage, or midline shift. No extra-axial fluid collection. Skull base and calvarium: Fluid level present in the right sphenoid sinus. Remainder of the paranasal sinuses and mastoid air cells are clear. The visualized orbits are grossly unremarkable. No skull fractures. IMPRESSION: No intracranial abnormality. Fluid in the right sphenoid sinus suggesting sinusitis. No other finding to explain headache. Please note that all CT scans at this facility use dose modulation, iterative reconstruction, and/or weight-based dosing when appropriate to reduce radiation dose to as low as reasonably achievable. Dictated by Jaziel Cortes MD @ 07/04/2024 3:53:33 PM (Electronically Signed) Ordering Physician: Apurva Cagle M.D. Date of Service: 07/04/24 Procedure(s): XR foot LT min 3V Accession Number(s): [id number] cc: Neda Laguerre M.D.; Apurva Cagle M.D.~ For Patients: As a result of the Cures Act, medical imaging exams and procedure reports are released immediately into your electronic medical record. You may view this report before your referring provider. If you have questions, please contact your health care provider. INDICATION: Left 4, 5th toe pain, numbness TECHNIQUE: Toe radiograph 3 views left 5th COMPARISON: None FINDINGS: Bone: Small corticated ossicles are seen near the base of the 5th metatarsal and medial malleolus. No acute fractures or aggressive bone lesions are identified. Joint: The metatarsophalangeal and interphalangeal joints are normal in appearance. Soft tissue: Unremarkable. No radiopaque foreign bodies are seen. IMPRESSION: 1. No acute osseous injuries or abnormalities are noted. Dictated by Arpan Suero MD @ 07/04/2024 10:06:50 PM Dictated by: Arpan Suero MD @ 07/04/2024 22:06:57 (Electronically Signed)
[2024-07-04 19:43] LABS: Ionized Calcium* 1.57 mmol/L (1.11-1.30)
[2024-07-04 20:10] LABS: Chloride* 92 mmol/L (96-114)
[2024-07-04 20:11] LABS: Albumin* 3.9 g/dL (3.3-5.0); Potassium* 3.8 mmol/L (3.6-5.1); Sodium* 127 mmol/L (135-149)
[2024-07-04 20:13] LABS: Blood Urea Nitrogen* 28 mg/dL (7-30); Est. Creatinine Clearance* 38.86; Estimated Glomerular Filt Rate 59 ml/min
[2024-07-04 20:14] LABS: Alanine Aminotransferase* 26 U/L (4-35); Alkaline Phosphatase* 129 U/L (40-150); Anion Gap 11 mEq/L (7-15); Aspartate Amino Transferase* 78 U/L (12-35); Bilirubin Total* 0.7 mg/dL (0.1-1.5); Carbon Dioxide* 24 mmol/L (20-32); Glucose* 84 mg/dL (60-115); Total Protein* 6.9 g/dL (6.0-8.3)
[2024-07-04 20:16] LABS: Calcium* 12.7 mg/dL (8.4-10.6)
[2024-07-04] MEDS: 0.9 % SODIUM CHLORIDE 1000 ml 1,000 ML 200 ML IV (20:29)
[2024-07-04] MEDS: CALCITONIN,SALMON,SYNTHETIC 200 UNIT/ML inj SUBCUT (20:59)
[2024-07-04] MEDS: ZOLEDRONIC ACID 4 MG in 0.9 % SODIUM CHLORIDE 100 ml 100 ML 420 MG IVPB (21:00)
[2024-07-04 21:01] LABS: Vitamin D 25 Hydroxy* 58 ng/mL (30-80)
[2024-07-04] MEDS: SENNOSIDES/DOCUSATE TABLET 2 TAB PO (21:03)
[2024-07-04] MEDS: SODIUM CHLORIDE 0.9 % (FLUSH) 10 ML SYRINGE 5 ML IVF (21:03)
[2024-07-04] MEDS: ENOXAPARIN 30 MG/0.3ML INJ SUBCUT (21:07)
--- NOTE | 2024-07-04 21:23 | CRLHL7_ITS ---
For Patients: As a result of the Cures Act, medical imaging exams and procedure reports are released immediately into your electronic medical record. You may view this report before your referring provider. If you have questions, please contact your health care provider. INDICATION: Left 4, 5th toe pain, numbness TECHNIQUE: Toe radiograph 3 views left 5th COMPARISON: None FINDINGS: Bone: Small corticated ossicles are seen near the base of the 5th metatarsal and medial malleolus. No acute fractures or aggressive bone lesions are identified. Joint: The metatarsophalangeal and interphalangeal joints are normal in appearance. Soft tissue: Unremarkable. No radiopaque foreign bodies are seen. IMPRESSION: 1. No acute osseous injuries or abnormalities are noted. Dictated by Arpan Suero MD @ 07/04/2024 10:06:50 PM Dictated by: Arpan Suero MD @ 07/04/2024 22:06:57 (Electronically Signed)
[2024-07-05] VITALS (9 sets, daily range): BP systolic 108–155; BP diastolic 65–77; PULSE 90–96; RESP 16–18; TEMP 36.6–37.2; O2SAT 90–93
[2024-07-05] MEDS: ONDANSETRON 2 MG/ML inj 4 MG IVP ×4 (04:12→21:13)
[2024-07-05] MEDS: HYDROmorphone 0.5 mg/0.5 ml inj IVP (04:13)
[2024-07-05] MEDS: 0.9 % SODIUM CHLORIDE 1000 ml 1,000 ML 100 ML IV ×2 (04:15→20:00)
[2024-07-05 06:04] LABS: Basophils Absolute Auto 0.02 K/uL (0.00-0.30); Basophils Percent Auto 0.4 % (0.0-3.0); Hematocrit 30.9 % (33.0-51.0); Hemoglobin* 10.5 gm/dL (12.0-16.0); Immature Granulocytes Abs Auto 0.02 K/uL (0.00-0.30); Immature Granulocytes Pct Auto 0.4 %; Lymphocytes Percent Auto 14.4 % (20-44); Mean Corpuscular HGB Conc 34 gm/dL (32-36); Mean Corpuscular Hemoglobin 30 pg (26-34); Mean Corpuscular Volume 88 fL (80-100); Monocytes Percent Auto 8.2 % (0.0-11.0); Neutrophils Percent Auto 76.6 % (42.0-72.0); Platelet Count* 219 K/uL (140-440); RDW Coefficient of Variation % 12.9 % (11.5-15.5); Red Blood Count 3.52 m/uL (4.00-5.20); White Blood Count* 5.14 K/uL (4.50-11.00)
[2024-07-05 06:08] LABS: Slide Review Reflex No
[2024-07-05] MEDS: LEVOTHYROXINE 75 MCG TABLET PO (06:13)
[2024-07-05 06:14] LABS: Chloride* 97 mmol/L (96-114)
[2024-07-05 06:15] LABS: Albumin* 3.8 g/dL (3.3-5.0); Potassium* 3.7 mmol/L (3.6-5.1); Sodium* 130 mmol/L (135-149)
[2024-07-05 06:17] LABS: Blood Urea Nitrogen* 22 mg/dL (7-30); Creatinine* 0.9 mg/dL (0.5-1.5); Est. Creatinine Clearance* 38.86; Estimated Glomerular Filt Rate 68 ml/min
[2024-07-05 06:18] LABS: Alanine Aminotransferase* 25 U/L (4-35); Alkaline Phosphatase* 115 U/L (40-150); Anion Gap 8 mEq/L (7-15); Aspartate Amino Transferase* 67 U/L (12-35); Bilirubin Direct* 0.2 mg/dL (0.0-0.5); Bilirubin Total* 0.6 mg/dL (0.1-1.5); Calcium* 11.1 mg/dL (8.4-10.6); Carbon Dioxide* 25 mmol/L (20-32); Glucose* 97 mg/dL (60-115); Total Protein* 6.8 g/dL (6.0-8.3)
--- NOTE | 2024-07-05 07:15 | PC.NURSE ---
[id number]: Pt pleasant, alert and oriented to self, confusion and some trouble comprehending. VSS though tachycardic at times (low 100s). Afebrile. Pt called around 0400 with nausea and pain rated 6/10. Staff brought prn Zofran to pt, 25 emesis out. Pt stated improvement. Prn dilaudid given for pain, stated improvement. SBA in room, unsteady gait. Bed alarm on. Pt in bed, appears to be resting, call light within reach.?
--- NOTE | 2024-07-05 07:16 | PC.NURSE ---
[id number]: Pt pleasant, alert and oriented to self, confusion and some trouble comprehending. VSS though tachycardic at times (low 100s). Afebrile. Pt called around 0400 with nausea and pain rated 6/10. Staff brought prn Zofran to pt, 25 emesis out. Upon questioning pt stated getting dizzy and light headed before vomiting. Pt stated improvement. Prn dilaudid given for pain, stated improvement. SBA in room, unsteady gait. Bed alarm on. Pt in bed, appears to be resting, call light within reach.?
[2024-07-05] MEDS: SENNOSIDES/DOCUSATE TABLET 2 TAB PO ×2 (08:30→19:58)
--- NOTE | 2024-07-05 09:17 | NUTR.NU ---
RDN with nutrition screen related to significant weight loss noted. Patient admitted with uncontrolled back pain in setting of breast cancer with metastatic disease to spine. RDN will hold off on visiting with patient at this time due to goals of care. RDN will attempt to visit with patient at later date if appropriate.
[2024-07-05] MEDS: ACETAMINOPHEN 325 MG TABLET 975 MG PO (09:19)
--- NOTE | 2024-07-05 11:00 | CRLHL7_ITS ---
For Patients: As a result of the 21st Century Cures Act, medical imaging exams and procedure reports are released immediately into your electronic medical record. You may view this report before your referring provider. If you have questions, please contact your health care provider. Indication: WIDELY METASTATIC BREAST CANCER, CONFUSION Technique: Noncontrast sagittal T1, axial FLAIR, T2 turbo spine echo, and diffusion weighted images. Supplemental post contrast T1 weighted axial and coronal sequences are provided after administration of 15 ml Dotarem gadolinium-based IV contrast. Comparison: CT head 07/04/2024 Findings: The ventricles, sulci and gyri are normal size, shape and contour for age. The midline structures are centrally located with no evidence of shift. There are no suspicious intra or extra-axial fluid collections. Partially empty sella. The optic chiasm, pineal gland, and cerebellar tonsils are unremarkable. No evidence of restricted diffusion to suggest acute ischemia. Expected flow voids in the cavernous carotids and basilar artery. A 3 mm focus of enhancement in the superficial posterior inferior left cerebellum without parenchymal signal abnormality (series 1001, image 150). There are multiple enhancing calvarial lesions in the occipital bones, left parietal bone and right frontal calvarium, as well as in the upper cervical spine compatible with osseous metastases. Small air-fluid level in the sphenoid sinus. Impression: 1. No acute infarct, mass effect, hydrocephalus or hemorrhage. 2. A 3 mm focus of enhancement in the superficial posterior inferior left cerebellum without parenchymal signal abnormality that could represent small metastasis versus cortical vessel. Short-term follow-up imaging is recommended. 3. Multiple enhancing marrow replacing lesions in the calvarium and upper cervical spine compatible with osseous metastases. Dictated by Chinmay Pulido MD @ 07/05/2024 1:18:36 PM (Electronically Signed)
[2024-07-05 13:27] LABS: C Reactive Protein* 3.4 mg/dL (0.5-1.0)
[2024-07-05 13:34] LABS: Creatine Kinase* 42 U/L (41-117)
--- NOTE | 2024-07-05 13:34 | PM.IMPN1 ---
Assessment and Plan Assessment and plan (1) Breast cancer metastasized to multiple sites: Problem comment: primary mass is right breast with enlarged lymph nodes thoroughout the axilla, mediastinum. mets to: axial and appendicular skeleton; including calvarium and epidural extension lung and liver mets are not excluded. possible brain met noted. goals of care discussion was preliminary level on 07/05. Currently patient is unsure of her goals. Status: Acute (2) Pain from bone metastases: Problem comment: -scheduled tylenol, fentanyl patch - Can consider adding Cymbalta, gabapentin, Lyrica, denosumab, EBRT Status: Acute (3) Hypercalcemia: Problem comment: -2/2 metastatic breast cancer -14.5 --> 11.1 -s/p zoledronic acid, subQ Calcitonin, IV fluids -continue to monitor Status: Acute (4) Hyponatremia: Problem comment: 126 --> 130. 2/2 related to underlying cancer/mets/disability Status: Acute (5) Pathologic compression fracture of spine: Problem comment: metastatic related compression fractures T10 and L1 by MRI 06/24/24 consider outpatient denosumab Status: Acute (6) Hypothyroidism: Problem comment: s/p partial thyroidectomy for benign tumor, continue Synthroid Status: Chronic Subjective Date Seen: 07/05/24 Interval history: Daily Progress Note - Hospital Medicine #: 2 CC: malignancy induced hypercalcemia, metastatic breast cancer 24 HOUR UPDATE: Patient is hallucinating this morning seeing dogs and cats in her room and words when her eyes are closed. She has trouble staying on point with a conversation. She seems groggy. She has had doses of hydromorphone, 0.5 mg, at 4:13 a.m., 0.5 mg at 9:02 p.m., in 0.5 mg at 3:07pm. this is been combined with acetaminophen. I wrote for a fentanyl patch this afternoon. Treatment for hypercalcemia has been successful in bringing down her serum calcium to 11.1, albumin 3.8. As well as her denies to calcium is now 0.4. She has received 1 dose of calcitonin subcu at 200 units, IV fluids, and zoledronic acid 4 mg x1 dose. Notable Labs, Micro, Rads, Interventions: Vitals are stable blood pressure 155/76. Pulse 96. Resp is 18. She is afebrile. She is 90% on room air. Her sodium has improved to 130. Her renal function has improved from 1.2 with a BUN of 32 down to 22 and 0.9. Estimated creatinine clearance is 38.86. Her uric acid level is elevated at 8.9 Her calcium is down to 11.1, peak was 14.5 Ionized calcium is down to 1.4 Her liver enzymes are improving. Her vitamin-D was normal Thyroid, PTH, PTH related peptide are all pending All imaging, including brain MRI from today, 07/05, and yesterday's chest abdomen pelvis CT have been reviewed. I have also reviewed the lumbar thoracic spine MRIs from June 24. Objective: Patient looks cachectic, sallow and thin. She is clearly confused this morning and tangental but not pressured speech. She admits to seeing dogs and cats in the room. Vitals: see above Lungs: Clear. Cardiac: S1S2. Disposition/Potential discharge - TBD. Family meeting needed. Today I spent 50minutes seeing the patient, reviewing Expanse and EPIC notes/diagnostics, discussing the care plan with our care time that includes social work, PT/OT, pharmacy, RT, residential and documenting my impressions and plan in the medical record. Exam Const: Vital Signs, click to edit/add: Vital Signs - 24 hr 07/04/24 15:30 07/04/24 15:30 07/04/24 15:40 Temperature Pulse Rate Pulse Rate [Pulse Oximeter] 107 H Respiratory Rate 12 12 18 Blood Pressure [Ri ght Arm] Blood Pressure [Ri ght Upper Arm] 130/76 Pulse Oximetry 89 89 100 Oxygen Delivery Me thod Room Air Room Air Nasal Cannula Oxygen Flow Rate 2 07/04/24 16:00 07/04/24 17:00 07/04/24 18:32 Temperature 98.5 F Pulse Rate Pulse Rate [Pulse Oximeter] 100 95 101 H Respiratory Rate 16 16 16 Blood Pressure [Ri ght Arm] 160/81 H Blood Pressure [Ri ght Upper Arm] 139/72 141/79 H Pulse Oximetry 100 100 93 Oxygen Delivery Me thod Room Air Room Air Room Air Oxygen Flow Rate 07/04/24 18:32 07/04/24 20:18 07/04/24 20:28 Temperature 98.7 F Pulse Rate Pulse Rate [Pulse Oximeter] 96 Respiratory Rate 18 Blood Pressure [Ri ght Arm] 147/82 H Blood Pressure [Ri ght Upper Arm] Pulse Oximetry 94 94 Oxygen Delivery Me thod Room Air Room Air Oxygen Flow Rate 07/04/24 23:00 07/04/24 23:00 07/04/24 23:00 Temperature 98.1 F Pulse Rate 96 Pulse Rate [Pulse Oximeter] 102 H Respiratory Rate 16 Blood Pressure [Ri ght Arm] 131/70 Blood Pressure [Ri ght Upper Arm] Pulse Oximetry 91 91 Oxygen Delivery Me thod Room Air Room Air Oxygen Flow Rate 07/04/24 23:00 07/05/24 03:00 07/05/24 08:24 Temperature Pulse Rate Pulse Rate [Pulse Oximeter] 102 H 95 95 Respiratory Rate 16 16 16 Blood Pressure [Ri ght Arm] Blood Pressure [Ri ght Upper Arm] Pulse Oximetry Oxygen Delivery Me thod Oxygen Flow Rate 07/05/24 08:24 07/05/24 08:24 07/05/24 08:30 Temperature 97.9 F Pulse Rate 91 Pulse Rate [Pulse Oximeter] 95 Respiratory Rate 16 16 Blood Pressure [Ri ght Arm] 126/72 Blood Pressure [Ri ght Upper Arm] Pulse Oximetry 93 93 Oxygen Delivery Me thod Room Air Room Air Oxygen Flow Rate 07/05/24 11:00 Temperature 98.2 F Pulse Rate Pulse Rate [Pulse Oximeter] 96 Respiratory Rate 18 Blood Pressure [Ri ght Arm] 155/76 H Blood Pressure [Ri ght Upper Arm] Pulse Oximetry 90 Oxygen Delivery Me thod Room Air Oxygen Flow Rate Labs Labs: Laboratory Results - last 24 hr 07/04/24 07/04/24 07/04/24 14:22 15:10 19:36 WBC 5.32 RBC 4.21 Hgb 12.3 Hct 36.1 MCV 86 MCH 29 MCHC 34 RDW Coeff of Michelle 12.5 Plt Count 237 Neut % (Auto) 80.4 H Lymph % (Auto) 11.7 L Galax % (Auto) 5.8 Eos % (Auto) 0.0 Baso % (Auto) 0.4 Neut # (Auto) 4.30 Lymph # (Auto) 0.60 L [place] # (Auto) 0.30 Eos # (Auto) 0.00 Baso # (Auto) 0.02 Abs Immat Gran (auto) 0.09 Imm/Tot Granulo (auto) 1.7 Sodium 126 L Potassium 4.4 Chloride 83 L Carbon Dioxide 33 H Anion Gap 10 BUN 32 H Creatinine 1.2 Estimated Creat Clear 32.89 Estimated GFR 48 Glucose 104 Lactate 1.5 Calcium 14.5 H* Ionized Calcium Duke Total Bilirubin 0.9 Direct Bilirubin AST 100 H ALT 31 Alkaline Phosphatase 157 H Troponin I 0.03 C-Reactive Protein 3.4 H Total Protein 8.3 Albumin 4.7 25-OH Vitamin D Total Urine Color Yellow Urine Appearance Clear Urine pH 6.5 Ur Specific Randall 1.010 Urine Protein Negative Urine Glucose (UA) Negative Urine Ketones 1+ A Urine Blood 1+ A Urine Nitrite Negative Urine Bilirubin Negative Urine Urobilinogen 0.2 Ur Leukocyte Esterase Negative Urine RBC 2-5 A Urine WBC 0-2 Ur Squamous Epith Cells Few Urine Bacteria Few A Lab Acknowledgement Test Added 07/04/24 07/05/24 07/05/24 19:37 05:52 12:55 WBC 5.14 RBC 3.52 L Hgb 10.5 L Hct 30.9 L MCV 88 MCH 30 MCHC 34 RDW Coeff of Michelle 12.9 Plt Count 219 Neut % (Auto) 76.6 H Lymph % (Auto) 14.4 L Galax % (Auto) 8.2 Eos % (Auto) 0.0 Baso % (Auto) 0.4 Neut # (Auto) 3.90 Lymph # (Auto) 0.70 L Galax # (Auto) 0.40 Eos # (Auto) 0.00 Baso # (Auto) 0.02 Abs Immat Gran (auto) 0.02 Imm/Tot Granulo (auto) 0.4 Sodium 127 L 130 L Potassium 3.8 3.7 Chloride 92 L 97 Carbon Dioxide 24 25 Anion Gap 11 8 BUN 28 22 Creatinine 1.0 0.9 Estimated Creat Clear 38.86 38.86 Estimated GFR 59 68 Glucose 84 97 Lactate Calcium 12.7 H* 11.1 H Ionized Calcium Duke 1.57 H 1.40 H Total Bilirubin 0.7 0.6 Direct Bilirubin 0.2 AST 78 H 67 H ALT 26 25 Alkaline Phosphatase 129 115 Troponin I C-Reactive Protein Total Protein 6.9 6.8 Albumin 3.9 3.8 25-OH Vitamin D Total 58 Urine Color Urine Appearance Urine pH Ur Specific Randall Urine Protein Urine Glucose (UA) Urine Ketones Urine Blood Urine Nitrite Urine Bilirubin Urine Urobilinogen Ur Leukocyte Esterase Urine RBC Urine WBC Ur Squamous Epith Cells Urine Bacteria Lab Acknowledgement Test Added 07/05/24 13:00 WBC RBC Hgb Hct MCV MCH MCHC RDW Coeff of Michelle Plt Count Neut % (Auto) Lymph % (Auto) Galax % (Auto) Eos % (Auto) Baso % (Auto) Neut # (Auto) Lymph # (Auto) Galax # (Auto) Eos # (Auto) Baso # (Auto) Abs Immat Gran (auto) Imm/Tot Granulo (auto) Sodium Potassium Chloride Carbon Dioxide Anion Gap BUN Creatinine Estimated Creat Clear Estimated GFR Glucose Lactate Calcium Ionized Calcium Duke Total Bilirubin Direct Bilirubin AST ALT Alkaline Phosphatase Troponin I C-Reactive Protein Total Protein Albumin 25-OH Vitamin D Total Urine Color Urine Appearance Urine pH Ur Specific Randall Urine Protein Urine Glucose (UA) Urine Ketones Urine Blood Urine Nitrite Urine Bilirubin Urine Urobilinogen Ur Leukocyte Esterase Urine RBC Urine WBC Ur Squamous Epith Cells Urine Bacteria Lab Acknowledgement Test Added
[2024-07-05 13:35] LABS: Magnesium* 1.5 mg/dL (1.5-2.6); Phosphorus* 3.4 mg/dL (2.5-4.5); Uric Acid* 8.9 mg/dL (2.2-8.4)
--- NOTE | 2024-07-05 14:36 | PC.SOCIAL ---
Social work consult/check-in: boom stick worker attempted to meet with pt x2 this morning for a check-in, but was unsuccessful. The first time the pt was sleeping and not waking to this worker's voice and the other time she had gone to her MRI scan. Apon reading the providers progress note from today, she is stating a family meeting needs to be planned as the pt was hallucinating this morning in her room and the discharge plan for the pt needs to be discussed with her family. boom stick worker will discuss this case with this worker's co-worker to see if this worker's co-worker can meet with the pt and family tomorrow after consulting with the provider on duty in rounds tomorrow morning, as this social human services assistants does not work on Wednesdays. Social work to follow-up as needed.
[2024-07-05 14:46] LABS: PTH Intact* < 6.8 pg/mL (14.2-75.2)
[2024-07-05] MEDS: SODIUM CHLORIDE 0.9 % (FLUSH) 10 ML SYRINGE 5 ML IVF ×2 (14:56→21:14)
[2024-07-05] MEDS: fentaNYL 12 mcg/hr PATCH 1 PATCH TRANSDERMA (15:43)
[2024-07-05 16:48] LABS: Chloride* 95 mmol/L (96-114); Potassium* 3.4 mmol/L (3.6-5.1); Sodium* 130 mmol/L (135-149)
[2024-07-05 16:51] LABS: Anion Gap 10 mEq/L (7-15); Blood Urea Nitrogen* 22 mg/dL (7-30); Carbon Dioxide* 25 mmol/L (20-32); Creatinine* 1.1 mg/dL (0.5-1.5); Est. Creatinine Clearance* 35.19; Estimated Glomerular Filt Rate 53 ml/min
[2024-07-05 16:52] LABS: Calcium* 11.1 mg/dL (8.4-10.6); Glucose* 96 mg/dL (60-115); Phosphorus* 2.6 mg/dL (2.5-4.5)
[2024-07-05 17:39] LABS: Free T4 Free Thyroxine* 1.27 ng/dL (0.70-1.85)
[2024-07-05] MEDS: ACETAMINOPHEN 650 MG TABLET ER 1300 MG PO (18:30)
--- NOTE | 2024-07-05 19:09 | PC.NURSE ---
Nursing Care Hours: [id number] Pt this shift calm and cooperative. Alert and oriented x3. [place] dizzy and nauseated in bed this AM. Moving from supine to sitting at edge of bed well. Wire Drawing Machine Operator held the IV and oral narcotics and gave PO acetaminophen. Pt seemed to tolerate well. Went to MRI without issue. Shower with SB assist. Pt became nauseated and dry heaving after shower, treated with IV antiemetic. Pain increased after shower and Fentanyl patch applied to L shoulder. Scheduled acetaminophen started. Pt has intermittent hallucinations and pt is aware they are not real. States seeing people or faces, a heard of animals as well as hearing drums or grandson talking. Skin intact. Decreased appetite. Attempted fruit and yogurt at lunch and just took in bites. Ensure started at dinner, still working on it.
[2024-07-05] MEDS: ENOXAPARIN 30 MG/0.3ML INJ SUBCUT (19:59)
[2024-07-06] VITALS (9 sets, daily range): BP systolic 120–145; BP diastolic 66–80; PULSE 66–96; RESP 14–22; TEMP 36.7–36.9; O2SAT 90–95; BMI 19.1
[2024-07-06] MEDS: ACETAMINOPHEN 650 MG TABLET ER 1300 MG PO ×3 (01:51→19:55)
--- NOTE | 2024-07-06 04:49 | PC.NURSE ---
End of shift report [id number]: VS WNL. Afebrile. AxO x4. Pt is pleasantly confused at times. Pt reports no hallucinations this shift. Patient denies pain. Fentanyl patch is intact on left shoulder. Pt complained of nausea at the beginning of the shift, zofran and q-easy given, on reassessment pt was sleeping. Pt states she has dry mouth and mouth swabs given with relief. Ambulates A1, GB, W. NS running at 100 mls/hr in R forearm IV. Bed alarm on, call light within reach. Tele in place with NSR noted.?
[2024-07-06] MEDS: polyethylene glycoL 3350 17 GM PACK PO (05:51)
[2024-07-06] MEDS: 0.9 % SODIUM CHLORIDE 1000 ml 1,000 ML 100 ML IV (05:51)
[2024-07-06] MEDS: LEVOTHYROXINE 88 MCG TABLET PO (06:16)
[2024-07-06 06:28] LABS: Hematocrit 28.6 % (33.0-51.0); Hemoglobin* 9.7 gm/dL (12.0-16.0); Mean Corpuscular HGB Conc 34 gm/dL (32-36); Mean Corpuscular Hemoglobin 30 pg (26-34); Mean Corpuscular Volume 88 fL (80-100); Platelet Count* 204 K/uL (140-440); Red Blood Count 3.26 m/uL (4.00-5.20); White Blood Count* 4.69 K/uL (4.50-11.00)
[2024-07-06 06:29] LABS: Albumin* 3.3 g/dL (3.3-5.0); Chloride* 100 mmol/L (96-114); Sodium* 132 mmol/L (135-149)
[2024-07-06 06:31] LABS: Blood Urea Nitrogen* 20 mg/dL (7-30); Creatinine* 0.9 mg/dL (0.5-1.5); Est. Creatinine Clearance* 41.45; Estimated Glomerular Filt Rate 68 ml/min; Slide Review Reflex No
[2024-07-06 06:32] LABS: Alanine Aminotransferase* 18 U/L (4-35); Alkaline Phosphatase* 102 U/L (40-150); Anion Gap 9 mEq/L (7-15); Aspartate Amino Transferase* 48 U/L (12-35); Bilirubin Direct* 0.3 mg/dL (0.0-0.5); Bilirubin Total* 0.6 mg/dL (0.1-1.5); Calcium* 9.7 mg/dL (8.4-10.6); Carbon Dioxide* 23 mmol/L (20-32); Glucose* 79 mg/dL (60-115); Iron* 38 ug/dL (37-170); Phosphorus* 2.1 mg/dL (2.5-4.5); Total Protein* 6.1 g/dL (6.0-8.3)
[2024-07-06 06:35] LABS: C Reactive Protein* 7.9 mg/dL (0.5-1.0)
[2024-07-06 06:36] LABS: INR 1.12 (0.91-1.10); Potassium* 2.8 mmol/L (3.6-5.1); Prothrombin Time 15.2 Seconds
[2024-07-06 06:41] LABS: Percent Iron Saturation 17 % (20-50); Total Iron Binding Capacity 220 ug/dL (265-497)
[2024-07-06 06:43] LABS: NT Pro B Type NatriureticPept* 2080 pg/mL
--- NOTE | 2024-07-06 07:38 | P.IMPN_ITS ---
Assessment and Plan Assessment and plan (1) Breast cancer metastasized to multiple sites: Problem comment: primary mass is right breast with enlarged lymph nodes thoroughout the axilla, mediastinum. mets to: axial and appendicular skeleton; including calvarium and epidural extension lung and liver mets are not excluded. possible brain met noted. goals of care discussion was preliminary on 07/05. Currently patient is unsure of her goals. Discussion with oncology team 07/06- we will arrange a right breast u/s guided bx and outpatient consultation breast biopsy [facility] consultation with Dr. Snow 07/21 - go over biopsy results, labs, imaging and discuss options Status: Acute (2) Acute hypokalemia: Problem comment: will see how oral replacement is tolerated; IV replacement as a backup. Status: Acute (3) Pain from bone metastases: Problem comment: -scheduled tylenol, fentanyl patch -Can consider adding Cymbalta, gabapentin, Lyrica, denosumab, EBRT -very nauseated when given IV hydromorphone Status: Acute (4) Hypophosphatemia: Problem comment: trend. Status: Acute (5) Hypercalcemia: Problem comment: -2/2 metastatic breast cancer -14.5 --> 11.1 --> 9.7 -s/p zoledronic acid, subQ Calcitonin x 1, IV fluids -continue to monitor Status: Acute (6) Hyponatremia: Problem comment: 126 --> 130 --> 132 2/2 related to underlying cancer/mets/disability Status: Acute (7) Pathologic compression fracture of spine: Problem comment: metastatic related compression fractures T10 and L1 by MRI 06/24/24 consider outpatient denosumab Status: Acute (8) Hypothyroidism: Problem comment: s/p partial thyroidectomy for benign tumor, continue Synthroid -TSH suppressed but free T4 normal. Status: Chronic Subjective Date Seen: 07/06/24 Interval history: Daily Progress Note - Hospital Medicine Day#: 3 CC: malignancy induced hypercalcemia, metastatic breast cancer 24 HOUR UPDATE: patient rested better last night. the fentanyl patch has replaced the IV dilaudid providing better pain control. Her calcium is now normal. Her potassium as dropped; her phosphorus is lower Notable Labs, Micro, Rads, Interventions: Vitals are stable blood pressure 122/71. Pulse 94. Resp is 18. She is afebrile. She is 93% on room air. Her sodium has improved to 132. Her renal function has improved from 1.2 with a BUN of 32 down to 22 and 0.9. Estimated creatinine clearance is 38.86. Her uric acid level is elevated at 8.9 Her calcium is down to 9.7, peak was 14.5 Her liver enzymes are improving. Her vitamin-D was normal TSH is suppressed but free T4 normal. Intact PTH is suppressed as expected. PTH related peptide is pending All imaging, including brain MRI, 07/05, and yesterday's chest abdomen pelvis CT have been reviewed. I have also reviewed the lumbar thoracic spine MRIs from June 24. Objective: Patient looks cachectic, sallow and thin. Vitals: see above Lungs: Clear. Cardiac: S1S2. Disposition/Potential discharge - TBD. Family meeting needed. Today I spent 50minutes seeing the patient, reviewing Expanse and EPIC notes/diagnostics, discussing the care plan with our care time that includes social work, PT/OT, pharmacy, RT, penitentiary and documenting my impressions and plan in the medical record. Exam Const: Vital Signs, click to edit/add: Vital Signs - 24 hr 07/05/24 08:24 07/05/24 08:24 07/05/24 08:24 Temperature 97.9 F Pulse Rate Pulse Rate [Pulse Oximeter] 95 95 Respiratory Rate 16 16 16 Blood Pressure [Ri t Arm] 126/72 Pulse Oximetry 93 93 Oxygen Delivery Me thod Room Air Room Air 07/05/24 08:30 07/05/24 11:00 07/05/24 15:00 Temperature 98.2 F 98.4 F Pulse Rate 91 Pulse Rate [Pulse Oximeter] 96 93 Respiratory Rate 18 18 Blood Pressure [Ri ght Arm] 155/76 H 136/77 Pulse Oximetry 90 92 Oxygen Delivery Me thod Room Air Room Air 07/05/24 15:00 07/05/24 15:00 07/05/24 19:00 Temperature 98.9 F Pulse Rate Pulse Rate [Pulse Oximeter] 93 95 Respiratory Rate 18 18 18 Blood Pressure [Ri ght Arm] 114/65 Pulse Oximetry 92 92 Oxygen Delivery Me thod Room Air Room Air 07/05/24 20:00 07/05/24 21:10 07/05/24 23:00 Temperature 98.8 F Pulse Rate 94 Pulse Rate [Pulse Oximeter] 90 Respiratory Rate 16 Blood Pressure [Ri ght Arm] 108/66 Pulse Oximetry 92 92 Oxygen Delivery Me thod Room Air 07/05/24 23:00 07/05/24 23:00 07/06/24 03:00 Temperature 98.1 F Pulse Rate Pulse Rate [Pulse Oximeter] 90 94 Respiratory Rate 16 16 16 Blood Pressure [Ri ght Arm] 122/71 Pulse Oximetry 93 93 Oxygen Delivery Me thod Room Air Room Air Labs Labs: Laboratory Results - last 24 hr 07/04/24 07/05/24 07/05/24 15:10 05:52 12:55 WBC RBC Hgb Hct MCV MCH MCHC Plt Count INR Sodium Potassium Chloride Carbon Dioxide Anion Gap BUN Creatinine Estimated Creat Clear Estimated GFR Glucose Uric Acid 8.9 H Calcium Phosphorus 3.4 Magnesium 1.5 Iron TIBC % Saturation Ferritin Total Bilirubin Direct Bilirubin AST ALT Alkaline Phosphatase Total Creatine Kinase 42 C-Reactive Protein 3.4 H NT-Pro-B Natriuret Pep Total Protein Albumin TSH 0.220 L Free T4 1.27 PTH Intact < 6.8 L Lab Acknowledgement Test Added 07/05/24 07/05/24 07/05/24 13:00 16:14 16:26 WBC RBC Hgb Hct MCV MCH MCHC Plt Count INR Sodium 130 L Potassium 3.4 L Chloride 95 L Carbon Dioxide 25 Anion Gap 10 BUN 22 Creatinine 1.1 Estimated Creat Clear 35.19 Estimated GFR 53 Glucose 96 Uric Acid Calcium 11.1 H Phosphorus 2.6 Magnesium Iron TIBC % Saturation Ferritin Total Bilirubin Direct Bilirubin AST ALT Alkaline Phosphatase Total Creatine Kinase C-Reactive Protein NT-Pro-B Natriuret Pep Total Protein Albumin 4.0 TSH Free T4 PTH Intact Lab Acknowledgement Test Added Test Added 07/06/24 05:43 WBC 4.69 RBC 3.26 L Hgb 9.7 L Hct 28.6 L MCV 88 MCH 30 MCHC 34 Plt Count 204 INR 1.12 H Sodium 132 L Potassium 2.8 L* Chloride 100 Carbon Dioxide 23 Anion Gap 9 BUN 20 Creatinine 0.9 Estimated Creat Clear 41.45 Estimated GFR 68 Glucose 79 Uric Acid Calcium 9.7 Phosphorus 2.1 L Magnesium Iron 38 TIBC 220 L % Saturation 17 L Ferritin 804.0 H Total Bilirubin 0.6 Direct Bilirubin 0.3 AST 48 H ALT 18 Alkaline Phosphatase 102 Total Creatine Kinase C-Reactive Protein 7.9 H NT-Pro-B Natriuret Pep 2080 Total Protein 6.1 Albumin 3.3 TSH Free T4 PTH Intact Lab Acknowledgement
[2024-07-06] MEDS: 5 % DEXTROSE IN LAC RINGER'S 1,000 ML 100 ML IV ×2 (08:02→18:24)
[2024-07-06] MEDS: POTASSIUM BICARB 25 MEQ EFFERVESCENT TAB PO ×4 (08:04→15:59)
[2024-07-06] MEDS: ONDANSETRON 2 MG/ML inj 4 MG IVP ×3 (08:38→22:35)
[2024-07-06] MEDS: SENNOSIDES/DOCUSATE TABLET 2 TAB PO ×2 (08:51→20:13)
[2024-07-06] MEDS: SODIUM CHLORIDE 0.9 % (FLUSH) 10 ML SYRINGE 5 ML IVF (08:52)
[2024-07-06 13:45] LABS: Potassium* 3.5 mmol/L (3.6-5.1)
--- NOTE | 2024-07-06 15:01 | PC.SOCIAL ---
Addendum entered and electronically signed by Marcela Booth LCSW 07/06/24 15:40: LI informed by provider that would like to move forward with [facility]. [phone] Original Note: Discharge planning: SW received voicemail from patient?s requesting that SW meet with him at 11:00 when he comes to the hospital to discuss hospice. ? SW met with patient?s to answer his questions around hospice. had questions about if patient didn?t go home, where patient could go to receive hospice. SW explained that hospice agencies don?t have their own facilities, but can go into patient?s place of residence. inquired about if she wasn?t at home where could she go. SW explained that typically then individuals go to an assisted living facility where hospice teams can then support them there. expressed understanding. Patient?s had questions about an aide for assistance. SW explained that they have those through hospice, but couldn?t give specifics on how many hours they would be alotted. SW explained that there are options to hire additional support through other agencies and provided information on local area home care agencies. ? ? Patient's inquired about the process for getting into hospice. SW explained that ?a provider has to place an order/referral for hospice. SW explained that if they would like a referral placed, the inpatient provider could place that and then we could fax a referral to the agency of their choosing. SW discussed that if they didn?t want to go with hospice right now, they would need to meet with patient?s PCP to have them place an order/referral for hospice. SW explained that if patient and are considering hospice, an order could be placed and a referral sent to their hospice choice and once they meet with hospice they could still decline at that time. asked about what if they choose a hospice but then don?t like them. SW explained that they could then choose a different hospice and to move forward with. SW provided patient?s with information for local area hospice agencies, and brought brochures for a few so that he could learn more about what hospice services there are. ? asked about how to get a hospital bed. SW explained that hospice would assist with this and other equipment that is needed in the home. ? is going to review the hospice options with his family and will contact SW with questions or if they have made a decision. ? SW to assist as needed. ?
--- NOTE | 2024-07-06 19:04 | PC.NURSE ---
End of Shift: Patient cooperative. Patient vitally stable, lung clear and diminished at times, BS WNL, IV running D5LR at 100. Patient reports pain but does not rate it, she most often will say her head hurts. Scheduled Tylenol given, fentanyl patch on left outer shoulder. Patient 1 assist/walker. Patient tolerating diet but barely eating. Patient urinating well, and had 2 hard BMs and 1 loose BM. Patient has been in bed all day, falling asleep on and off, patient also had visitors.
[2024-07-06] MEDS: ENOXAPARIN 30 MG/0.3ML INJ SUBCUT (20:14)
[2024-07-06] MEDS: POTASSIUM PHOS/SODIUM PHOS 250 MG TABLET PO (20:14)
[2024-07-07] VITALS (7 sets, daily range): BP systolic 136–161; BP diastolic 79–97; PULSE 79–100; RESP 16–18; TEMP 36.4–37; O2SAT 89–93
[2024-07-07] MEDS: ACETAMINOPHEN 650 MG TABLET ER 1300 MG PO ×3 (03:51→20:49)
[2024-07-07] MEDS: 5 % DEXTROSE IN LAC RINGER'S 1,000 ML 100 ML IV (03:57)
[2024-07-07] MEDS: LEVOTHYROXINE 75 MCG TABLET PO (05:56)
--- NOTE | 2024-07-07 06:20 | PC.NURSE ---
End?of shift report [id number]: VS WNL. Afebrile. At the beginning of the shift pt complained of anxiety, repairer typewriter encouraged relaxation techniques, upon reassessment pt was noted to be sleeping. Pt had a 100 ml emesis this shift, zofran and q-easy patch offered and given with relief. Denies pain. Fentanyl patch intact on the left shoulder. Pt had 2 diarrhea BMs this shift. Pt utilizing mouth swabs for dry mouth with relief. Ambulates assist 1, GB, W. Bed alarm on, call light within reach.?
[2024-07-07 06:24] LABS: Hematocrit 29.1 % (33.0-51.0); Hemoglobin* 10.1 gm/dL (12.0-16.0); Mean Corpuscular HGB Conc 35 gm/dL (32-36); Mean Corpuscular Hemoglobin 30 pg (26-34); Mean Corpuscular Volume 87 fL (80-100); Platelet Count* 204 K/uL (140-440); Red Blood Count 3.36 m/uL (4.00-5.20); White Blood Count* 3.94 K/uL (4.50-11.00)
[2024-07-07 06:25] LABS: Slide Review Reflex No
[2024-07-07 06:32] LABS: Albumin* 3.1 g/dL (3.3-5.0); Chloride* 96 mmol/L (96-114); Sodium* 133 mmol/L (135-149)
[2024-07-07 06:35] LABS: Anion Gap 4 mEq/L (7-15); Blood Urea Nitrogen* 14 mg/dL (7-30); Calcium* 8.5 mg/dL (8.4-10.6); Carbon Dioxide* 33 mmol/L (20-32); Creatinine* 0.7 mg/dL (0.5-1.5); Est. Creatinine Clearance* 41.45; Estimated Glomerular Filt Rate 91 ml/min; Glucose* 146 mg/dL (60-115)
[2024-07-07 06:36] LABS: Potassium* 2.7 mmol/L (3.6-5.1)
[2024-07-07 06:46] LABS: Phosphorus* 1.2 mg/dL (2.5-4.5)
[2024-07-07 07:43] LABS: Magnesium* 1.2 mg/dL (1.5-2.6)
[2024-07-07] MEDS: POTASSIUM CHLORIDE 20 MEQ in 0.9 % SODIUM CHLORIDE 1000 ml 1,000 ML 125 MEQ IV ×2 (08:12→18:26)
[2024-07-07] MEDS: POTASSIUM PHOS/SODIUM PHOS 250 MG TABLET PO ×4 (08:51→20:45)
[2024-07-07] MEDS: MAGNESIUM IV 4 GM/100 ML PIGGYBACK IVPB (08:51)
--- NOTE | 2024-07-07 09:16 | P.IMPN_ITS ---
Assessment and Plan Assessment and plan (1) Breast cancer metastasized to multiple sites: Problem comment: -primary mass (this time) is RIGHT breast with enlarged lymph nodes thoroughout the axilla, mediastinum. -HISTORY: Infiltrating ductal carcinoma, LEFT breast, s/p lumpectomy 05/2010, s/p radiation, (did not tolerate Arimidex), RIGHT breast cancer diagnosed fall 2020, status post lumpectomy 01/10, s/p radiation, didn't keep oncology follow-up. Neg mammo in 04/14, no mammo in 2023. mets to: axial and appendicular skeleton; including calvarium and epidural extension lung and liver mets are not excluded. possible brain met noted. goals of care discussion was preliminary on 07/05. Currently patient is unsure of her goals. Discussion with oncology team 07/06- we will arrange a right breast u/s guided bx and outpatient consultation breast biopsy DELMY consultation with Dr. Snow 07/21 - go over biopsy results, labs, imaging and discuss options Status: Acute (2) Acute hypokalemia: Problem comment: depleted quickly after oral replacement potphosphate oral change IV fluids-remove dextrose replace magnesium follow labs Status: Acute (3) Pain from bone metastases: Problem comment: -scheduled tylenol, fentanyl patch -Can consider adding Cymbalta, gabapentin, Lyrica, denosumab, EBRT -very nauseated when given IV hydromorphone Status: Acute (4) Hypophosphatemia: Problem comment: trend. Status: Acute (5) Hypercalcemia: Problem comment: -2/2 metastatic breast cancer -14.5 --> 11.1 --> 9.7 -->8.5 -s/p zoledronic acid, subQ Calcitonin x 1, IV fluids -continue to monitor Status: Acute (6) Hyponatremia: Problem comment: 126 --> 130 --> 132 -->133 2/2 related to underlying cancer/mets/disability Status: Acute (7) Pathologic compression fracture of spine: Problem comment: metastatic related compression fractures T10 and L1 by MRI 06/24/24 consider outpatient denosumab Status: Acute (8) Hypothyroidism: Problem comment: s/p partial thyroidectomy for benign tumor, continue Synthroid -TSH suppressed but free T4 normal. Status: Chronic Subjective Date Seen: 07/07/24 Interval history: Daily Progress Note - Hospital Medicine #: 4 CC: malignancy induced hypercalcemia, hypokalemia, hypomagnesemia, hypophosphatemia in metastatic to bone/lung/liver breast cancer 24 HOUR UPDATE: patient rested better last night. The fentanyl patch has replaced the IV dilaudid providing better pain control. Her calcium is now normal. K+, Phos, Mag all depleted. Notable Labs, Micro, Rads, Interventions: Vitals are stable blood pressure 137/79. Pulse 79. Resp is 18. She is afebrile. She is 93% on room air. Her hgb is 10.1 mild leukopenia; normal platelets Her sodium has improved to 133. Her renal function has improved from 1.2 with a BUN of 32 down to 14 and 0.7. Estimated creatinine clearance is 42. phos is 1.2 mag is 1.2 albumin is 3.1 Her uric acid level is elevated at 8.9 Her calcium is down to 8.5, peak was 14.5 Her liver enzymes are improving. Her vitamin-D was normal TSH is suppressed but free T4 normal. Intact PTH is suppressed as expected. PTH related peptide is pending All imaging, including brain MRI, 07/05, and yesterday's chest abdomen pelvis CT have been reviewed. I have also reviewed the lumbar thoracic spine MRIs from June 24. Objective: Patient looks cachectic, sallow and thin. Vitals: see above Lungs: Clear. Cardiac: S1S2. Disposition/Potential discharge - patient and family presented with options: 1. continue in hospital care for electrolytes/nutrition/strengthening 2.transition to home hospice. Today I spent 50minutes seeing the patient, reviewing Expanse and EPIC notes/diagnostics, discussing the care plan with our care time that includes social work, PT/OT, pharmacy, RT, retirement and documenting my impressions and plan in the medical record. Exam Const: Vital Signs, click to edit/add: Vital Signs - 24 hr 07/06/24 11:00 07/06/24 15:37 07/06/24 15:37 Temperature 98.4 F 98.1 F Pulse Rate [Pulse Oximeter] 85 88 88 Respiratory Rate 22 18 18 Blood Pressure [Ri ght Arm] 138/80 120/72 Pulse Oximetry 92 95 Oxygen Delivery Me thod Room Air Room Air 07/06/24 15:37 07/06/24 19:00 07/06/24 20:00 Temperature 98.3 F Pulse Rate [Pulse Oximeter] 87 Respiratory Rate 18 16 Blood Pressure [Ri ght Arm] 145/76 H Pulse Oximetry 95 94 94 Oxygen Delivery Me thod Room Air Room Air 07/06/24 21:59 07/06/24 21:59 07/06/24 21:59 Temperature 98.4 F Pulse Rate [Pulse Oximeter] 87 66 Respiratory Rate 16 16 16 Blood Pressure [Ri ght Arm] 122/66 Pulse Oximetry 94 90 Oxygen Delivery Me thod Room Air Room Air 07/06/24 22:37 07/07/24 02:55 07/07/24 07:00 Temperature 98.4 F 98 F 97.6 F Pulse Rate [Pulse Oximeter] 90 80 79 Respiratory Rate 16 18 18 Blood Pressure [Ri ght Arm] 122/66 152/83 H 137/79 Pulse Oximetry 90 91 93 Oxygen Delivery Me thod Room Air Room Air Room Air Labs Labs: Laboratory Results - last 24 hr 07/06/24 07/07/24 07/07/24 13:23 06:10 07:17 WBC 3.94 L RBC 3.36 L Hgb 10.1 L Hct 29.1 L MCV 87 MCH 30 MCHC 35 Plt Count 204 Sodium 133 L Potassium 3.5 L 2.7 L* Chloride 96 Carbon Dioxide 33 H Anion Gap 4 L BUN 14 Creatinine 0.7 Estimated Creat Clear 41.45 Estimated GFR 91 Glucose 146 H Calcium 8.5 Phosphorus 1.2 L Magnesium 1.2 L Albumin 3.1 L Lab Acknowledgement Test Added
[2024-07-07] MEDS: ONDANSETRON 2 MG/ML inj 4 MG IVP ×2 (12:26→19:34)
--- NOTE | 2024-07-07 16:48 | PC.SOCIAL ---
Discharge planning: adult services librarian received a call from Evelin at [facility] #[phone], fax #[phone], email: [email or web address] who shared that she needed an order to admit to hospice for the pt because she was told by pt's last night that he would like to move forward with pursuing hospice. police worker called pt's , Markel, who confirmed this. police worker received the admit to hospice order from the provider on duty and secure emailed it to Evelin at [facility] along with other documents that she needed. police worker then spoke with pt's son, Vinicio, who had concerns about his mother going home on hospice and what would happen if his father got to the point where he was not able to care for his mother. police worker explained that there would be a hospice bereavement coordinator that could assist the family with finding a facility for the pt to go to. Pt's son stated that his parents have no savings and would not have money to private pay for a hospice/SNF facility. police worker explained the process of applying for MA and the MA-LTC application and that it would be a good idea for the family to start working on that now in the event that his mother may need to go to a facility in the future as her disease progresses while she is on hospice. Pt's son also asked if he could speak to the provider on duty about a prognosis timeline for his mother and the provider went in to talk to him shortly thereafter. police worker then met with pt's son, and daughter again this afternoon and provided them with an MA-LTC application to start working on for the pt. The family also shared that after talking to the doctor today several times the pt is still undecided about whether or not she wants to go home on hospice tomorrow or the other option the provider discussed with them would be the pt pursuing treatment(one of the treatments she would need is a feeding tube) and going home with home health care and then following up with her Oncologist. The pt will be thinking this over tonight. If the pt does decide to go on hospice, [facility] will need to be notified as soon as possible. Per Evelin, she ordered the hospital bed today. Social work to follow-up as needed.
[2024-07-07 17:00] LABS: Chloride* 97 mmol/L (96-114); Sodium* 132 mmol/L (135-149)
[2024-07-07 17:03] LABS: Anion Gap 6 mEq/L (7-15); Blood Urea Nitrogen* 14 mg/dL (7-30); Carbon Dioxide* 29 mmol/L (20-32); Creatinine* 0.7 mg/dL (0.5-1.5); Est. Creatinine Clearance* 41.45; Estimated Glomerular Filt Rate 91 ml/min; Glucose* 106 mg/dL (60-115)
[2024-07-07 17:04] LABS: Potassium* 2.9 mmol/L (3.6-5.1)
--- NOTE | 2024-07-07 19:16 | PC.NURSE ---
End of Shift: Patient pleasant and cooperative, A&O but forgetful. VSS, afebrile. SpO2 maintained above 90% on RA. Patient reports pain in her head this shift, managed with scheduled medication, see MAR. Patient refused any narcotics for pain this shift besides fent patch which is on the left shoulder. Patient reports nausea this shift, managed with PRN medication, see MAR. Regular diet. 1A with walker and gait belt.
[2024-07-07 19:19] LABS: Magnesium* 1.9 mg/dL (1.5-2.6)
[2024-07-07] MEDS: ENOXAPARIN 30 MG/0.3ML INJ SUBCUT (19:48)
[2024-07-08] VITALS (7 sets, daily range): BP systolic 137–153; BP diastolic 74–77; PULSE 74–93; RESP 16–18; TEMP 36.4–37.1; O2SAT 91–96
[2024-07-08] MEDS: ONDANSETRON 2 MG/ML inj 4 MG IVP ×4 (01:21→19:46)
[2024-07-08] MEDS: POTASSIUM CHLORIDE 20 MEQ in 0.9 % SODIUM CHLORIDE 1000 ml 1,000 ML 125 MEQ IV (02:06)
[2024-07-08] MEDS: ACETAMINOPHEN 650 MG TABLET ER 1300 MG PO ×2 (04:59→15:26)
[2024-07-08 06:19] LABS: HCO3 VBG 24 mmol/L (21-28); PCO2 VBG 34 mmHG (40-50); PO2 VBG 53.9 mmHG (25-47); pH VBG 7.465 (7.32-7.43)
[2024-07-08 06:24] LABS: Hemoglobin* 10.1 gm/dL (12.0-16.0); Mean Corpuscular HGB Conc 34 gm/dL (32-36); Mean Corpuscular Hemoglobin 30 pg (26-34); Mean Corpuscular Volume 88 fL (80-100); Platelet Count* 203 K/uL (140-440); Red Blood Count 3.41 m/uL (4.00-5.20); Slide Review Reflex No
--- NOTE | 2024-07-08 06:36 | PC.NURSE ---
[id number]: Pt pleasant, alert and oriented, some periods of confusion. VSS though tachycardic at times (low 100s). Afebrile. O2 sats remained in the low to mid 90s throughout shift. Pt stated, ?I feel as if I had an energy surg, like the ones animals get before passing.? Proceeded to converse with pt, therapeutic communication utilized. Pt stated nausea throughout the shift, no emesis. Prn Zofran given. Pt stated anxiety with medications and the potential for nausea. Staff provided pt with music and reassurance educated on deep breathing exercise. Pt stated improvement. Pt had some back pain during shift rated 2-3/10, tolerated with scheduled Tylenol. Fentanyl patch in place (left shoulder). SBA in room, bed alarm on. Pt in bed, appears to be resting, call light within reach.?
[2024-07-08 06:47] LABS: Albumin* 2.9 g/dL (3.3-5.0); Chloride* 101 mmol/L (96-114); Sodium* 135 mmol/L (135-149)
[2024-07-08 06:50] LABS: Alanine Aminotransferase* 112 U/L (4-35); Alkaline Phosphatase* 115 U/L (40-150); Anion Gap 8 mEq/L (7-15); Aspartate Amino Transferase* 148 U/L (12-35); Bilirubin Direct* 0.4 mg/dL (0.0-0.5); Bilirubin Total* 0.7 mg/dL (0.1-1.5); Blood Urea Nitrogen* 14 mg/dL (7-30); Carbon Dioxide* 26 mmol/L (20-32); Creatinine* 0.8 mg/dL (0.5-1.5); Est. Creatinine Clearance* 41.45; Estimated Glomerular Filt Rate 78 ml/min; Total Protein* 5.3 g/dL (6.0-8.3)
[2024-07-08] MEDS: LEVOTHYROXINE 88 MCG TABLET PO (06:50)
[2024-07-08 06:51] LABS: Calcium* 7.1 mg/dL (8.4-10.6); Glucose* 84 mg/dL (60-115)
[2024-07-08 06:53] LABS: C Reactive Protein* 3.9 mg/dL (0.5-1.0)
[2024-07-08 09:26] LABS: Magnesium* 1.5 mg/dL (1.5-2.6)
[2024-07-08] MEDS: SODIUM CHLORIDE 0.9 % (FLUSH) 10 ML SYRINGE 5 ML IVF ×2 (10:18→21:28)
--- NOTE | 2024-07-08 15:26 | PC.SOCIAL ---
Discharge plan: Received call from [facility] [phone] at 9:00 this morning to confirm discharge time. Updated hospice that family needs to speak with MD regarding the plan as some family members do not agree with the plan for hospice. logging worker to call [facility] back when decision is reached by pt and family regarding discharge. At 2:30, decision was made by family for plan to take pt home 07/09/24 with [facility]. Called [facility] and spoke with Evelin who will be able to complete an admit to hospice at pt's home ion 07/09/24 at 10:00am. This is the only time that will work for an admit as this is a holiday weekend. Evelin confirmed that DME has already been delivered to pt's home. Evelin requested breakthrough pain medication to get the patient through until Thursday be sent home with pt as it may not be possible for [facility] to get medication until then. Family is aware and agrees with discharge plan. Family will transport pt home in their own vehicle and area aware of hospice admit time of 10:00am. On 07/09/24, prior to discharge, RN needs to call [facility] at [phone] and leave a message with the answering service for the admission nurse Evelin to call back. She will call the hospital back within a few minutes. Evelin will need to confirm discharge time and what medications pt is being sent home with for breakthrough pain. Discharge orders for hospice can be sent home with pt for hospice to picker and sorter load and unload during admit at home.
--- NOTE | 2024-07-08 15:48 | PM.IMPN1 ---
Assessment and Plan Assessment and plan (1) Breast cancer metastasized to multiple sites: Problem comment: -primary mass (this time) is RIGHT breast with enlarged lymph nodes throughout the axilla, mediastinum. -HISTORY: Infiltrating ductal carcinoma, LEFT breast, s/p lumpectomy 05/2010, s/p radiation, (did not tolerate Arimidex), RIGHT breast cancer diagnosed fall 2020, status post lumpectomy 01/10, s/p radiation, didn't keep oncology follow-up. Neg mammo in 04/14, no mammo in 2023. mets to: axial and appendicular skeleton; including calvarium and epidural extension lung and liver mets are not excluded. possible brain met noted. goals of care discussion was preliminary on 07/05. Currently patient is unsure of her goals. Discussion with oncology team 07/06- we will arrange a right breast u/s guided bx and outpatient consultation breast biopsy DEL[facility] consultation with Dr. Snow 07/21 - go over biopsy results, labs, imaging and discuss options - 07/08/2024: Patient resolved and family supportive to change the paradigm of care to comfort focus measures only with DNR DNI resuscitation status. She declines any additional disease directed diagnostic or interventional efforts. She requests hospice support in her home along with her family. [facility] has been consulted per patient and family request. Status: Acute (2) Acute hypokalemia: Problem comment: depleted quickly after oral replacement potphosphate oral change IV fluids-remove dextrose replace magnesium follow labs - 07/08/2024: patient declines additional monitoring and supplementation Status: Acute (3) Pain from bone metastases: Problem comment: -scheduled tylenol, fentanyl patch -Can consider adding Cymbalta, gabapentin, Lyrica, denosumab, EBRT -very nauseated when given IV hydromorphone - 07/08/2024: Pain better controlled with fentanyl transdermal patch and intermittent oxycodone Status: Acute (4) Hypophosphatemia: Problem comment: trend. - 07/08/2024: patient declines additional laboratory studies and supplementation Status: Acute (5) Hypercalcemia: Problem comment: -2/2 metastatic breast cancer -14.5 --> 11.1 --> 9.7 -->8.5 -s/p zoledronic acid, subQ Calcitonin x 1, IV fluids -continue to monitor - 07/08/2024: patient declines additional monitoring or interventions Status: Acute (6) Hyponatremia: Problem comment: 126 --> 130 --> 132 -->133 2/2 related to underlying cancer/mets/disability - 07/08/2024: Patient declines additional monitoring or interventions Status: Acute (7) Pathologic compression fracture of spine: Problem comment: metastatic related compression fractures T10 and L1 by MRI 06/24/24 consider outpatient denosumab Status: Acute (8) Hypothyroidism: Problem comment: s/p partial thyroidectomy for benign tumor, continue Synthroid -TSH suppressed but free T4 normal. Status: Chronic (9) Cancer cachexia: Problem comment: - 07/04/2024: 160 cm tall, 49 kg, BMI 19 Status: Acute Plan 1. Reviewed current status, goals, plan, recommendations with patient, , son, daughter, [id number] 2. Answered their questions are satisfaction 3. They are agreeable with above stated plans and recommendations Total Time Spent Total Time Spent: 120 minutes Subjective Date Seen: 07/08/24 Interval history: Daily Progress Note - Hospital Medicine Day#: 5 CC: malignancy induced hypercalcemia, hypokalemia, hypomagnesemia, hypophosphatemia, cancer cachexia, breast cancer metastatic to axial and appendicular skeleton, lymph nodes, lung, liver, brain More physically comfortable and emotionally content and spiritually at peace now than she has been previously. Resolved to focus on comfort measures only with DNR DNI resuscitation, declining any additional disease directed diagnostic or interventional efforts. I spent 2 hours with her, her Markel, her son Pedro, her daughter Lilia, and Pedro's . All are supportive of the patient's decision and desires. All are agreeable to proceed with hospice support in the home. They have initiated these efforts with [facility]. Plans are for patient to transition home tomorrow with family and hospice support. With help of nursing staff she is able to get up in shower and brush her teeth. She is very satisfied with this. Declines additional supplementation with magnesium, potassium, so forth. Exam Narrative: Exam Narrative: Examined patient in her hospital room. Appears comfortable and an no acute distress. Alert oriented x4. Contemplative. Reminiscing. Cachectic appearance with sunken facial features. Lungs are clear. Heart tones with regular rhythm. Abdomen is thin and benign. Const: Vital Signs, click to edit/add: Vital Signs - 24 hr 07/07/24 19:46 07/07/24 21:04 07/07/24 23:00 Temperature 98.6 F Pulse Rate [Bilate ral Dorsalis Pedis ] Pulse Rate [Pulse Oximeter] 83 Respiratory Rate 16 16 Blood Pressure [Ri ght Arm] 151/81 H Pulse Oximetry 91 91 91 Oxygen Delivery Me thod Room Air Room Air Oxygen Flow Rate 07/07/24 23:00 07/07/24 23:00 07/08/24 03:00 Temperature 98.3 F Pulse Rate [Bilate ral Dorsalis Pedis ] 100 100 Pulse Rate [Pulse Oximeter] 83 93 Respiratory Rate 18 18 16 Blood Pressure [Ri ght Arm] 161/97 H 137/77 Pulse Oximetry 89 93 Oxygen Delivery Me thod Room Air Room Air Oxygen Flow Rate 07/08/24 07:00 07/08/24 07:00 07/08/24 07:00 Temperature 98.7 F Pulse Rate [Bilate ral Dorsalis Pedis ] 74 87 Pulse Rate [Pulse Oximeter] 93 Respiratory Rate 16 16 16 Blood Pressure [Ri ght Arm] 143/74 H Pulse Oximetry 93 93 Oxygen Delivery Me thod Room Air Room Air Oxygen Flow Rate 0 0 07/08/24 11:00 Temperature Pulse Rate [Bilate ral Dorsalis Pedis ] Pulse Rate [Pulse Oximeter] Respiratory Rate 18 Blood Pressure [Ri ght Arm] Pulse Oximetry Oxygen Delivery Me thod Oxygen Flow Rate Labs Labs: Laboratory Results - last 24 hr 07/07/24 07/08/24 07/08/24 16:05 04:00 06:11 WBC 5.40 RBC 3.41 L Hgb 10.1 L Hct 30.0 L MCV 88 MCH 30 MCHC 34 Plt Count 203 VBG pH 7.465 H VBG pCO2 34 L VBG pO2 53.9 H VBG HCO3 24 Sodium 132 L 135 Potassium 2.9 L* 3.0 L Chloride 97 101 Carbon Dioxide 29 26 Anion Gap 6 L 8 BUN 14 14 Creatinine 0.7 0.8 Estimated Creat Clear 41.45 41.45 Estimated GFR 91 78 Glucose 106 84 Calcium 8.0 L 7.1 L Phosphorus 2.0 L Magnesium 1.9 1.5 Total Bilirubin 0.7 Direct Bilirubin 0.4 AST 148 H ALT 112 H Alkaline Phosphatase 115 C-Reactive Protein 3.9 H Total Protein 5.3 L Albumin 2.9 L Lab Acknowledgement 07/08/24 08:49 WBC RBC Hgb Hct MCV MCH MCHC Plt Count VBG pH VBG pCO2 VBG pO2 VBG HCO3 Sodium Potassium Chloride Carbon Dioxide Anion Gap BUN Creatinine Estimated Creat Clear Estimated GFR Glucose Calcium Phosphorus Magnesium Total Bilirubin Direct Bilirubin AST ALT Alkaline Phosphatase C-Reactive Protein Total Protein Albumin Lab Acknowledgement Test Added
[2024-07-08] MEDS: fentaNYL 12 mcg/hr PATCH 1 PATCH TRANSDERMA (16:57)
--- NOTE | 2024-07-08 18:19 | PC.NURSE ---
Patient has intermittent nausea throughout shift. Demonstrates poor appetite with very little PO intake. Zofran given PRN. Up ambulating to the bathroom. Had shower today. New fentanyl patch placed on the patient's right outer upper arm.
[2024-07-08] MEDS: ENOXAPARIN 30 MG/0.3ML INJ SUBCUT (19:40)
[2024-07-09] MEDS: ONDANSETRON 2 MG/ML inj 4 MG IVP (00:12)
[2024-07-09] MEDS: ACETAMINOPHEN 650 MG TABLET ER 1300 MG PO ×2 (00:15→09:00)
[2024-07-09 03:42] VITALS: RESP 18
[2024-07-09 05:51] VITALS: RESP 16
[2024-07-09] MEDS: PROCHLORPERAZINE 5 MG/ML VIAL 10 MG IV (06:11)
[2024-07-09] MEDS: LEVOTHYROXINE 75 MCG TABLET PO (06:20)
--- NOTE | 2024-07-09 06:27 | PC.NURSE ---
End of shift [id number]: A&O pleasant and cooperative. Upon initial assessment pt smiley and expressing how excited she is to go home. VSS. Intermittent nausea throughout night. See eMAR for interventions. Fentanyl patch on right outer shoulder. A1 w/ walker and GB. Using call light appropriately. ?
--- NOTE | 2024-07-09 12:10 | PC.NURSE ---
Discharge instructions sent with patient. All questions were answered and forms were signed. Compazine given overnight which seemed to work well for the patient. Compazine added as a discharge medication. To be picked up at [facility] [place].
--- NOTE | 2024-07-09 14:46 | PM.DS1 ---
DS: Providers Provider Date Seen: 07/09/24 Date of admission: 07/04/24 19:07 Primary care physician: Neda Laguerre MD Admitting Clinician: Radha Metzger MD Consults: 07/07/24 09:17 Consult to Occupational Therapy [CONS] Routine Comment: Reason(s) for OT Consult:: Evaluate and Treat Any Restrictions?:: No Restrictions Consult to Physical Therapy [CONS] Urgent Comment: Reason(s) for PT Consult:: Evaluate and Treat Any Restrictions?:: No Restrictions Attending Physician on discharge: Lenny Gutierrez MD Date of Discharge: 07/09/24 DS: Diagnosis Discharge Diagnosis (1) End of life care: Status: Acute Problem details: - patient opted to proceed with end of life care on 07/08/2024, with , son, daughter, [id number] all supporting her decision. - they have elected to utilize [facility] services in their home. (2) Hypercalcemia: Status: Acute Problem details: -2/2 metastatic breast cancer -14.5 --> 11.1 --> 9.7 -->8.5 -s/p zoledronic acid, subQ Calcitonin x 1, IV fluids -continue to monitor - 07/08/2024: patient declines additional monitoring or interventions (3) Pain from bone metastases: Status: Acute Problem details: -scheduled tylenol, fentanyl patch -Can consider adding Cymbalta, gabapentin, Lyrica, denosumab, EBRT -very nauseated when given IV hydromorphone - 07/08/2024: Pain better controlled with fentanyl transdermal patch and intermittent oxycodone (4) Breast cancer metastasized to multiple sites: Status: Acute Problem details: -primary mass (this time) is RIGHT breast with enlarged lymph nodes throughout the axilla, mediastinum. -HISTORY: Infiltrating ductal carcinoma, LEFT breast, s/p lumpectomy 05/2010, s/p radiation, (did not tolerate Arimidex), RIGHT breast cancer diagnosed fall 2020, status post lumpectomy 01/10, s/p radiation, didn't keep oncology follow-up. Neg mammo in 04/14, no mammo in 2023. mets to: axial and appendicular skeleton; including calvarium and epidural extension lung and liver mets are not excluded. possible brain met noted. goals of care discussion was preliminary on 07/05. Currently patient is unsure of her goals. Discussion with oncology team 07/06- we will arrange a right breast u/s guided bx and outpatient consultation breast biopsy DELMY consultation with Dr. Snow 07/21 - go over biopsy results, labs, imaging and discuss options - 07/08/2024: Patient resolved and family supportive to change the paradigm of care to comfort focus measures only with DNR DNI resuscitation status. She declines any additional disease directed diagnostic or interventional efforts. She requests hospice support in her home along with her family. [facility] has been consulted per patient and family request. (5) Cancer cachexia: Status: Acute Problem details: - 07/04/2024: 160 cm tall, 49 kg, BMI 19 (6) Acute hypokalemia: Status: Acute Problem details: depleted quickly after oral replacement potphosphate oral change IV fluids-remove dextrose replace magnesium follow labs - 07/08/2024: patient declines additional monitoring and supplementation (7) Hypophosphatemia: Status: Acute Problem details: trend. - 07/08/2024: patient declines additional laboratory studies and supplementation (8) Hyponatremia: Status: Acute Problem details: 126 --> 130 --> 132 -->133 2/2 related to underlying cancer/mets/disability - 07/08/2024: Patient declines additional monitoring or interventions (9) Pathologic compression fracture of spine: Status: Acute Problem details: metastatic related compression fractures T10 and L1 by MRI 06/24/24 consider outpatient denosumab (10) Hypothyroidism: Status: Chronic Problem details: s/p partial thyroidectomy for benign tumor, continue Synthroid -TSH suppressed but free T4 normal. DS: Summary Hospital Course Hospital Course: Admission history of present illness: ?74 year old female with a history of recurrent breast cancer, recent discovery of bone metastases, hypothyroidism, osteopenia, and chronic neck pain, presents to the emergency department for concerns of worsening back pain. She had breast cancer back in 2010 with a recurrence in 2020. She was seen by Dr. Magdaleno at that time. The patient tells me that she did not trust Dr. Magdaleno's recommendation to start tamoxifen, because Crissy thought that alternative medicine would be better and so she was lost to follow-up. In January she started having low back pain that has been getting worse and starting to spasm. She has tried going to 2 different chiropractors without improvement. It is starting to affect her sleep and activities of daily living. She went to urgent care in mid May and was found to have a compression fracture of the spine. She saw the back clinic and also had an MRI of her thoracic and lumbar spine and was found to widespread bone Mets likely from breast cancer. She met with her primary care provider again prescribed immediate release oxycodone. She is supposed to have a brain MRI and PET scan later this week and follow-up with Oncology. Pain was getting unbearable and she was starting to get confused at home as well. Her is with her today helps to give the history. She tried taking 2.5 mg of oxycodone, but was afraid to increase the dose to 5 or 10 mg time. She did not notice much effect of the medication for pain. Also in the last few months she has noticed left 4th and 5th toe numbness it is starting to become painful in that area as well. She just feels tender and achy all over.? During initial part of hospitalization patient and family were still pursuing disease directed diagnostic interventional efforts. Responded well to hypercalcemia management efforts. It became evident over a fairly rapid period of time that patient's functional status was not improving despite hypercalcemia normalizing. Discussions undertaken about the possibility of proceeding with additional disease directed diagnostic and interventional efforts given the family's interest in pursuing additional palliative intervention. Patient made it very clear that she is not interested whatsoever in nutritional enteral or parenteral support. Her desire is to pursue end of life comfort focus measures only with DNR DNI resuscitation status with the support of her family and hospice. Patient herself decline any additional disease directed diagnostic or interventional efforts. ?Day#: 5: malignancy induced hypercalcemia, hypokalemia, hypomagnesemia, hypophosphatemia, cancer cachexia, breast cancer metastatic to axial and appendicular skeleton, lymph nodes, lung, liver, brain ?More physically comfortable and emotionally content and spiritually at peace now than she has been previously. Resolved to focus on comfort measures only with DNR DNI resuscitation, declining any additional disease directed diagnostic or interventional efforts. I spent 2 hours with her, her Markel, her son Pedro, her daughter Lilia, and Pedro's . All are supportive of the patient's decision and desires. All are agreeable to proceed with hospice support in the home. They have initiated these efforts with [facility]. Plans are for patient to transition home tomorrow with family and hospice support. ?With help of nursing staff she is able to get up in shower and brush her teeth. She is very satisfied with this. ?Declines additional supplementation with magnesium, potassium, so forth.? Status at Discharge Functional status at discharge: uses cane/walker Time Spent with Patient Time attestation: Total time spent providing and/or coordinating discharge services: Time spent: Less than 30 minutes Exam Narrative: Exam Narrative: Examined patient in her hospital room. Appears comfortable and an no acute distress. Alert oriented x4. Contemplative. Reminiscing. Cachectic appearance with sunken facial features. Lungs are clear. Heart tones with regular rhythm. Abdomen is thin and benign. No focal motor neurologic deficits. Transfers and ambulates with standby assist. Const: Vital Signs, click to edit/add: Vital Signs - 24 hr 07/08/24 15:00 07/08/24 15:00 07/08/24 15:00 Temperature 97.5 F L Pulse Rate [Bilate ral Dorsalis Pedis ] 87 Pulse Rate [Pulse Oximeter] 93 Respiratory Rate 18 18 Blood Pressure [Ri ght Arm] Pulse Oximetry 96 96 Oxygen Delivery Me thod Room Air Room Air Oxygen Flow Rate 0 07/08/24 19:30 07/08/24 22:12 07/08/24 22:41 Temperature 98.4 F Pulse Rate [Bilate ral Dorsalis Pedis ] Pulse Rate [Pulse Oximeter] 91 Respiratory Rate 18 18 Blood Pressure [Ri ght Arm] 153/75 H Pulse Oximetry 91 91 91 Oxygen Delivery Me thod Room Air Room Air Oxygen Flow Rate 0 07/09/24 03:42 07/09/24 05:51 Temperature Pulse Rate [Bilate ral Dorsalis Pedis ] Pulse Rate [Pulse Oximeter] Respiratory Rate 18 16 Blood Pressure [Ri ght Arm] Pulse Oximetry Oxygen Delivery Me thod Oxygen Flow Rate DS: Data Imaging CT Chest/Ab/Pelvis: Attestation: I have reviewed the pertinent imaging results. Radiologist's impression: FINDINGS: CHEST The thoracic inlet is unremarkable. The thyroid gland is within normal limits. The thoracic aorta is nonaneurysmal. There is no filling defect to suggest pulmonary embolus. There are enlarged mediastinal, hilar and subcarinal lymph nodes appreciated. Demonstration of likely prior left axillary lymph node dissection as well as a 2.7 x 1.9 centimeter mass in the upper-outer quadrant of the right breast abutting the adjacent pectoral muscle. Additional pathologic lymph nodes within the right axilla appreciated with likely biopsy marker clip. Marked central bronchial thickening. Demonstration of [id number]-[id number]-ocys-right basilar trace effusions with adjacent compressive atelectasis. There is mild interlobular septal thickening which may represent a component of pulmonary vascular congestion. Minimal questionable airspace opacity in the anterior right lower lobe is appreciated. There are somewhat spiculated nodules of soft tissue in the left lower lobe measuring 2.0 x 1.8 centimeters along the cardiopericardial surface. Additional spiculated pulmonary mass in the left lung base measuring 1.2 centimeters is appreciated. Heterogeneous marrow changes of the visualized thoracic osseous structures commensurate with likely underlying metastasis are appreciated. Again seen are metastatic changes of the thoracic spine with compression deformity of the T10 level as well as Schmorl`s defect of the superior T12 endplate and evolving likely pathologic fracture of the superior L1 endplate. No significant change from comparison exam. Underlying metastatic changes are better appreciated on comparison MRI. ABDOMEN AND PELVIS The liver demonstrates a large hypodense mass lesion within the posterior right liver with somewhat irregular margins measuring 3.9 x 3.4 centimeters which may represent metastatic change. There is suggestion of minimal peripheral nodular enhancement. An underlying hemangioma is not excluded. The spleen is normal in attenuation and size. The gallbladder is unremarkable without radiopaque calculus. There is no intrahepatic or common ductal dilatation. The stomach and duodenum are grossly unremarkable. The pancreas is normal in enhancement without significant atrophy. The adrenal glands are unremarkable without evidence of adenoma. There is prominence of the bilateral collecting systems without evidence obstructive calculus. There is somewhat abrupt caliber change at the right ureteropelvic junction. The colon demonstrates mild stool with minimal distal colonic diverticulosis. The appendix is unremarkable without significant inflammatory change. The abdominal aorta is nonaneurysmal without significant atherosclerotic disease. The solid pelvic viscera are grossly unremarkable. There is no pathologically enlarged epigastric, mesenteric, retroperitoneal, or pelvic sidewall lymph node. The anterior abdominal wall is grossly intact without significant hernias. There is no free air or free fluid. There is extensive lytic change within the left sacral ala with likely minimal epidural encroachment and encompassing the sacral neural foramina. Extensive lytic and blastic changes of the bilateral iliac bones are appreciated. Redemonstration of metastatic changes of the lumbar spine better appreciated on comparison MRI. No significant change from previous. Impression: 1. 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 2. Small left basilar effusion with demonstration of spiculated pulmonary mass lesions within the lower lobes and anterior left upper lobe commensurate with likely metastatic disease. 3. Primary mass in the upper-outer right breast is appreciated with pathologic right axillary lymph node. 4. Demonstration of a hypodensity within the posterior right liver which may represent a large metastatic focus; however, there is minimal peripheral nodular enhancement. A large hemangioma is not excluded. 5. Otherwise, no acute intra-abdominal abnormalities or evidence of additional metastasis. CT scan - head: Attestation: I have reviewed the pertinent imaging results. Radiologist's impression: IMPRESSION: No intracranial abnormality. Fluid in the right sphenoid sinus suggesting sinusitis. No other finding to explain headache. MR Brain: Attestation: I have reviewed the pertinent imaging results. Radiologist's impression: Findings: The ventricles, sulci and gyri are normal size, shape and contour for age. The midline structures are centrally located with no evidence of shift. There are no suspicious intra or extra-axial fluid collections. Partially empty sella. The optic chiasm, pineal gland, and cerebellar tonsils are unremarkable. No evidence of restricted diffusion to suggest acute ischemia. Expected flow voids in the cavernous carotids and basilar artery. A 3 mm focus of enhancement in the superficial posterior inferior left cerebellum without parenchymal signal abnormality (series 1001, image 150). There are multiple enhancing calvarial lesions in the occipital bones, left parietal bone and right frontal calvarium, as well as in the upper cervical spine compatible with osseous metastases. Small air-fluid level in the sphenoid sinus. Impression: 1. No acute infarct, mass effect, hydrocephalus or hemorrhage. 2. A 3 mm focus of enhancement in the superficial posterior inferior left cerebellum without parenchymal signal abnormality that could represent small metastasis versus cortical vessel. Short-term follow-up imaging is recommended. 3. Multiple enhancing marrow replacing lesions in the calvarium and upper cervical spine compatible with osseous metastases. Discharge Plan Discharge Disposition: Xfer Home- (Hospice) Date of Admission: 07/04/24 19:07 Attending Provider on Discharge: Lenny Gutierrez Primary Care Provider: Neda Laguerre Condition: Guarded Anticipated Discharge Date/Time: 07/09/24 09:00 Discharge Medications: New lorazepam 0.5 mg tablet 0.5 mg PO TID PRN (Reason: anxiety) Qty: 20 0RF fentanyl 12 mcg/hr patch 72 hour 1 patch transdermal Q72H Qty: 5 0RF oxycodone 5 mg tablet 5 mg PO Q6H PRN (Reason: pain) Qty: 20 0RF ondansetron 4 mg Tablet,Disintegrating 4 mg PO Q4H PRN15 Days Qty: 30 0RF prochlorperazine 25 mg suppository 25 mg [place] BID PRN (Reason: nausea and vomiting) Qty: 12 0RF prochlorperazine maleate [Compazine] 5 mg tablet 5 mg PO TID PRN (Reason: nausea and vomiting) Qty: 20 0RF Continued levothyroxine [Synthroid] 88 mcg tablet 88 mcg PO .COMPLEX Qty: 45 3RF Rx Instructions: 88 mcg orally q48h; alternate every other day with 75 micrograms levothyroxine [Synthroid] 75 mcg tablet 75 mcg PO .COMPLEX Qty: 45 3RF Rx Instructions: 75 mcg orally q48h; alternate with 88 micrograms every other day Discontinued Lots of melaluca vitamins 1 tab PO DAILY ibuprofen 200 mg tablet 200 mg PO Q6H PRN omega [id number] oil [Fish Oil] 60-90-500 mg capsule 1 cap PO QDAY mecobalamin (vitamin B12) 1 tab PO DAILY oxycodone 5 mg tablet 5 - 10 mg PO Q4-8H PRN (Reason: pain) Qty: 60 0RF Discharge Orders: Discharge Order (Routine); Ordered 07/09/24 Ordered By: Lenny Gutierrez Additional Instructions: 1. Hospice referral: Breast cancer, widely metastatic to axial and appendicular skeleton, lymph nodes, liver, brain. Not a candidate for additional disease directed diagnostic or interventional efforts due to declining and poor functional status. 2. Comfort focused treatments and interventions with DNR/DNI resuscitation status. Activity Level: Activity as Tolerated Discharge Diet: Other Diet Detail: Diet and and liquids as tolerated Follow Up Appointments: Neda Laguerre MD [Primary Care Provider] - Forms: [employer] Info Instructions
== END 2024-07-09 09:20 | disposition hospice, home (50) | DRG 542 ==
LOC: ED 16:33 → MEDSURG 18:07
PROVIDERS: Internal Medicine; Admitting Provider Family Medicine; Emergency Provider Emergency Medicine; PCP Internal Medicine; Visit Provider Family Medicine
DX: C79.51 Secondary malignant neoplasm of bone (principal); E43 Unspecified severe protein-calorie malnutrition; Z68.1 Body mass index [BMI] 19.9 or less, adult; M84.58XA Pathological fracture in neoplastic disease, other specified site, initial encounter for fracture; C77.3 Secondary and unspecified malignant neoplasm of axilla and upper limb lymph nodes; C77.1 Secondary and unspecified malignant neoplasm of intrathoracic lymph nodes; C78.7 Secondary malignant neoplasm of liver and intrahepatic bile duct; C78.02 Secondary malignant neoplasm of left lung; C78.01 Secondary malignant neoplasm of right lung; E87.1 Hypo-osmolality and hyponatremia; C79.31 Secondary malignant neoplasm of brain; M80.88XA Other osteoporosis with current pathological fracture, vertebra(e), initial encounter for fracture; G89.3 Neoplasm related pain (acute) (chronic); C50.411 Malignant neoplasm of upper-outer quadrant of right female breast; E83.52 Hypercalcemia; E87.6 Hypokalemia; E88.A Wasting disease (syndrome) due to underlying condition; E86.0 Dehydration; E83.42 Hypomagnesemia; E03.9 Hypothyroidism, unspecified; M85.88 Other specified disorders of bone density and structure, other site; Z85.3 Personal history of malignant neoplasm of breast
CPT/HCPCS: 36415; 70450; 70553; 71260; 73630; 74177; 80048; 80053; 80069; 80076; 81001; 82306; 82330; 82397; 82550; 82728; 82803; 83540; 83550; 83605; 83735; 83880; 83970; 84100; 84132; 84439; 84443; 84484; 84550; 85025; 85027; 85610; 86140; 87086; 93005; 97162; 97165; 99284; 99285; A9270; A9575; J0630; J0780; J1171; J1650; J2405; J3475; J3480; J3489; J7030; Q9967